=== PATIENT | male | born 1945 | race Caucasian/White ===

== ENCOUNTER 2016-07-03 13:34 | Emergency (ER) | payer MEDICARE, OTHER ==
[~2016-07-03] VITALS: Ht 170.1 cm; Wt 72.6 kg
[~2016-07-03 13:34] MED LIST: ALBUTEROL SULFAT3 M1 NEB; ASACOL PO; ASMANEX220 MCG INH; BIAXIN500 MG PO; CEFTIN250 MG PO; CETIRIZINE10 MG PO; CLARITIN10 MG PO; FORADIL AERO0.012 MG IH; MEDROL DOSEPAK4 MG PO; MESALAMINE PO; MULTIVITAMIN1 TAB PO; PANTOPRAZOLE40 MG PO; PRILOSEC20 MG PO; PROBIOTIC FORMU1 CAP PO; PROVENTIL0.09 MG/AC IH; SINGULAIR10 MG PO; SPIRIVA18 MCG IH; SUPER B COMPLEX PO; SYMBICORT 10.10.2 M1 IH; SYMBICORT1 AE1 INH; VICODIN 5/500 505 MG PO; VICODIN ES 7501 TA1 PO; VICODIN ES 7501 TAB PO; Ventolin 02.5 MG/3 M INH; ZITHROMAX Z PA250 MG PO
[2016-07-03 13:39] VITALS: BP 141/73
[2016-07-03] MEDS ORDERED: ASPIR LOW81 MG PO (15:03)
[2016-07-03] MEDS ORDERED: PLAVIX75 M1 PO (15:03)
== END 2016-07-03 15:30 | disposition home or self-care (01) ==
LOC: ED 13:34
DX: I74.8 Embolism and thrombosis of other arteries (principal); K21.9 Gastro-esophageal reflux disease without esophagitis; J44.9 Chronic obstructive pulmonary disease, unspecified; F17.200 Nicotine dependence, unspecified, uncomplicated; R03.0 Elevated blood-pressure reading, without diagnosis of hypertension; Z88.1 Allergy status to other antibiotic agents; Z88.8 Allergy status to other drugs, medicaments and biological substances; Z79.899 Other long term (current) drug therapy

== ENCOUNTER 2016-09-12 08:54 | Emergency (ER) | payer MEDICARE, OTHER ==
[~2016-09-12] VITALS: Wt 74.4 kg
[~2016-09-12 08:54] MED LIST changes: +ASPIR LOW81 MG PO; +PLAVIX75 M1 PO
[2016-09-12 09:09] VITALS: BP 132/69
[2016-09-12] MEDS ORDERED: FLONASE ALLERG9.9 ML NAS (09:17)
[2016-09-12] MEDS ORDERED: VITAMIN D-32000 UNI1 PO (09:18)
[2016-09-12] MEDS ORDERED: VITAMIN C1000 M3 PO (09:19)
[2016-09-12] MEDS ORDERED: ULTRAM50 MG PO (09:19)
[2016-09-12] MEDS ORDERED: TAMSULOSIN HCL0.4 MG PO (09:20)
[2016-09-12] MEDS ORDERED: ASACOL HD800 M1 PO (09:20)
[2016-09-12] MEDS ORDERED: REQUIP0.5 MG PO (09:21)
[2016-09-12] MEDS ORDERED: PERCOCET 325 MG1 TA2 PO (11:52)
== END 2016-09-12 12:05 | disposition home or self-care (01) ==
LOC: ED 08:54
DX: S32.049A Unspecified fracture of fourth lumbar vertebra, initial encounter for closed fracture (principal); J44.9 Chronic obstructive pulmonary disease, unspecified; K21.9 Gastro-esophageal reflux disease without esophagitis; Z90.49 Acquired absence of other specified parts of digestive tract; Z88.1 Allergy status to other antibiotic agents; Z88.8 Allergy status to other drugs, medicaments and biological substances; X58.XXXA Exposure to other specified factors, initial encounter; Y93.89 Activity, other specified; Y92.9 Unspecified place or not applicable; Y99.9 Unspecified external cause status

== ENCOUNTER 2017-04-07 22:41 | Inpatient (IN) | payer MEDICARE, OTHER ==
[~2017-04-07] VITALS: Ht 170.2 cm; Wt 77.2 kg
--- NOTE | ~2017-04-07 | PR ---
[place], [place] PROGRESS NOTE NAME: FRANCIA MOHAMUD UNIT #: [id number] ROOM: 411 DOCTOR: ALEXANDRIA FAITH DO BIRTHDATE: [birth year] DOS: 04/16/2017 SUBJECTIVE: The patient was seen and evaluated today. He is in no acute distress. He denies any chest pain. He states he is having some soreness in the throat, but otherwise his respirations are improving. Denies any diarrhea, abdominal pain, headache, fevers or any other symptoms. OBJECTIVE: VITAL SIGNS: 97.7 for temperature, pulse 85, respiratory rate 20, blood pressure 132/82 and bedside pulse oximetry 95% on 2 liters. GENERAL: The patient appears to be in no acute distress. He is awake, alert and oriented to time, place and person. PULMONARY: Some scattered wheezes or diminished breath sounds. No apparent crackles or rhonchi. CARDIOVASCULAR: S1, S2 can be heard. No lower extremity edema. ABDOMEN: Shows no distension, no abdominal pain. EXTREMITIES: No erythema, no edema. NEUROLOGIC: No acute neuro deficits. CULTURES: There is heavy yeast, but otherwise cultures have been negative. LABORATORY DATA: WBC 10.2, HGB 14.2, HCT 43.9 and platelets 229. Chemistries: Sodium is 142, potassium 3.8, chloride 103, carbon dioxide 35, BUN 27, creatinine 0.91, glucose 124, calcium 7.9. IMPRESSION AND PLAN: Acute on chronic respiratory failure secondary to tracheobronchitis. The patient has improved significantly and is cleared to go home from pulmonary perspective at the discretion of the primary care team. He will be continued on breathing treatments and prednisone. He will follow up with Dr. Doan in 2-4 weeks. The patient also should continue to take an antifungal agent for his oral thrush. Otherwise, see Dr. Doan's note for further details. ALEXANDRIA FAITH DO [place], [place] PROGRESS NOTE NAME: FRANCIA MOHAMUD UNIT #: [id number] ROOM: 411 DOCTOR: ALEXANDRIA FAITH DO BIRTHDATE: [birth year] KHAI DOAN MD CM:ARTURO [id number] ALEXANDRIA FAITH DO 04/19/17 1051 interface
--- NOTE | ~2017-04-07 | CON ---
[place], [place] REPORT OF CONSULTATION NAME: FRANCIA MOHAMUD [facility] #: [id number] UNIT #: [id number] ROOM: 411 DOCTOR: KHAI CHE MD BIRTHDATE: [birth year] DOS: 04/13/2017 CONSULTATION REQUESTED BY: For the patient by the hospitalist services. REASON FOR CONSULTATION: Assessment of the ongoing acute exacerbation of chronic obstructive pulmonary disease for this patient and no resolution of symptoms since hospitalization of 04/07/2017. HISTORY OF PRESENT ILLNESS: This is a 71-year-old white male, who has been admitted under care of hospitalist services on 04/07/2017. The patient reported symptoms of having increased shortness of breath with coughing, chest congestion for about 2-3 days. He has been brought to the hospital by the EMS. The patient was noted with worsening of shortness of breath at that time. He denies any symptoms of chest pain. The cough has been noted with intermittent sputum expectoration including greenish sputum expectoration of small quantity. There was no hemoptysis. He does complain of tightness in the chest at that time, but there was no chest pain. The patient has been treated with intravenous corticosteroids, bronchodilators, antibiotics reported with partial reduction of the symptoms, still noted significant cough which is currently noted nonproductive, inability to expectorate sputum. Hard cough for this patient was noted resulting in pain in the area ____ bilaterally but there was no sputum expectoration described. REVIEW OF SYSTEMS: CONSTITUTIONAL: Fatigue and tiredness noted without symptoms of fever or chills. EYES: Denies any burning, redness, or tenderness. EAR, NOSE, THROAT SYMPTOMS: Denies sore throat, hoarseness, otalgia, postnasal drainage or epistaxis. CARDIOVASCULAR: Denies anginal pain, edema or pain of the lower extremities. GASTROINTESTINAL: Dysphagia, nausea, vomiting, diarrhea, abdominal pain, hematemesis, melena, or hematochezia. SKIN: Denies any lesions or rashes. MUSCULOSKELETAL: No any acute joint pain. Remaining systems were reviewed with the patient, they were noted all negative. PAST MEDICAL HISTORY: The patient was noted with history of: 1. Centrilobular emphysema, chronic obstructive pulmonary disease. 2. History of gastroesophageal reflux and irritable bowel syndrome. 3. The patient has history of allergic rhinitis. 4. History of chronic pain. 5. History of peripheral vascular disease. 6. History of restless legs syndrome. PAST SURGICAL HISTORY: Reported: 1. Hemorrhoidectomy. 2. Bilateral shoulder arthroplasty. 3. Cholecystectomy. 4. Pilonidal cyst removal. [place], [place] REPORT OF CONSULTATION [facility]: [id number] UNIT #: [id number] ROOM: 411 DOCTOR: BERENICE CHE MDM BIRTHDATE: [birth year] 5. Extraction of the teeth. 6. Tonsillectomy. 7. Femoral popliteal bypass grafting for peripheral disease management. 8. History of hemorrhoidectomy. SOCIAL HISTORY: The patient is , lives at home. The patient does smoke, was started as a teenager, about a 3 packs of cigarettes per day that was discontinued in 2009. 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 The patient with total exposure of 40 years to a lot of dust for this patient and possible asbestos as well. FAMILY HISTORY: The patient's father at age of 7171 years old, complications related to myocardial infarction. Mother at the age of 6161 years old related to the heart disease. HOME MEDICATIONS: Listed use of albuterol sulfate, vitamin C, aspirin, Symbicort, Zyrtec, vitamin D, Plavix, Flonase, mesalamine, multivitamin, Requip, Flomax, Spiriva, tramadol, vitamin B complex. DRUG ALLERGIES: Noted allergy: 1. SINGULAIR. 2. NEOMYCIN. 3. TYLENOL. PHYSICAL EXAMINATION: GENERAL: A 71-year-old male who has been currently noted to be awake and alert without any distress, sitting on the chair, started eating his breakfast. His height noted as 5 feet 7 inches, weight of 170 pounds, BMI 26.6. VITAL SIGNS: Normal temperature, respiratory rate 20-18, heart rate of 92-102, blood pressure 111/52-120/62. The pulse oxygen saturation of the patient recorded as 90% at 3 liters via nasal cannula. HEENT: Examination shows head was atraumatic. Eyes nonicterus. NECK: Supple. CARDIOVASCULAR: S1, S2 audible. LUNGS: Diffuse reduction in breath sounds noted in the lungs bilaterally with scattered expiratory wheezing. There were no crackles. ABDOMEN: Soft, nontender. EXTREMITIES: No edema, clubbing, cyanosis. CENTRAL NERVOUS SYSTEM: Cranial nerves 2-12 intact. No focal deficits. MUSCULOSKELETAL: No deformities. SKIN: No visible lesions or rashes. LABORATORY DATA: CBC of 04/11/2017 for the patient noted as normal CBC. The BMP of patient of 04/10/2017 showed glucose 164 for the patient noted, otherwise normal. The BMP of yesterday showed normal BUN and creatinine. The CBC was noted as normal. Review of the radiology data for this patient pertinent to the chest for this patient, the chest x-ray of the patient that has been done for patient on 04/09/2017 was noted without any acute abnormalities. COPD changes noted in [place], [place] REPORT OF CONSULTATION NAME: FRANCIA MOHAMUD UNIT #: [id number] ROOM: [facility] DOCTOR: KHAI CHE MD BIRTHDATE: [birth year] 04/07/2017 chest x-ray of the patient, previously was noted small area of atelectasis, left lower lobe. IMPRESSION: 1. The patient will be currently admitted to the hospital, treated for acute exacerbation of chronic obstructive pulmonary disease, acute tracheobronchitis with noted persistent cough without any improvement with current medical management. The cough is currently noted nonproductive. 2. Acute exacerbation of chronic obstructive pulmonary disease as well. 3. History of allergic rhinitis. 4. Irritable bowel syndrome. 5. Peripheral vascular disease and multiple other medical problems. PLAN OF MANAGEMENT: The patient has been currently getting the bronchodilators, Mucinex, high dose and the flutter valve. The Solu-Medrol has been also continued as 60 mg q.8 hours intravenously. She has her home medications that have been resumed and seemed not to be responding to the treatment. Plan continuation of the antibiotics, bronchodilators and oxygen supplementation and the flutter valve as well as the Mucinex. The patient will benefit from fiberoptic bronchoscopy, which would be therapeutic bronchoscopy to help clear secretions from the endobronchial tree. She was agreeable for the procedure as the risk and benefits were discussed with the patient in detail. N.p.o. past midnight status will be achieved from midnight tonight. Upon completion of the procedure, any modification treatment if necessary will be done accordingly. No other changes to be needed in the treatment today. Usual care. Supportive plan of management. KHAI DOAN MD CM:CONSTR:REPORT OF CONSULTATION 1106 04/13/17 1331 interface
--- NOTE | ~2017-04-07 | PR ---
[place], [place] PROGRESS NOTE [id number] UNIT #: [id number] ROOM: 411 DOCTOR: ALEXANDRIA FAITH DO BIRTHDATE: [birth year] DOS: 04/15/2017 This progress note is to be attached to Dr. Doan's progress note. SUBJECTIVE: The patient was evaluated. He is awake, alert, responsive. Denies any nausea, vomiting, chest pain or dizziness. He does state that his respiratory status is improved today as compared to yesterday since he had the bronch. Denies any fevers or chills. OBJECTIVE: VITAL SIGNS: Temperature 98, pulse 89, respiratory rate 20, blood pressure 137/55 and bedside pulse oximetry 97% on 3 liter nasal cannula. GENERAL: Awake, alert, oriented, pleasant, cooperative, in no acute distress. HEAD: Normocephalic, atraumatic. ENT: No changes. NECK: Without any masses or lesions. Trachea is midline. CARDIOVASCULAR: Regular rate and rhythm. No gallops or murmur. RESPIRATORY: The patient is coughing. LUNGS: Diminished breath sounds bilaterally with scattered wheezes. No rhonchi or rales. ABDOMEN: Soft, positive bowel sounds, nontender. EXTREMITIES: No clubbing, no cyanosis, no erythema. NEUROLOGIC: Grossly intact. Cranial nerves 2-12 are grossly intact. PSYCHOLOGICAL: Good historian and fair judgment. SKIN: Warm and dry. LABORATORY DATA: CBC shows a WBC count of 10.5, hemoglobin 14.3, hematocrit 43.2 and platelet count of 247. Chemistries: Sodium is 143, potassium 3.9, chloride 104, carbon dioxide 32, BUN 26, creatinine 0.94, GFR approximately more than 60, glucose 147, calcium 7.8. Cultures: Normal franco in the bronch with the heavy yeast. Final sputum culture showed normal franco with some whitey yeast. Bronch Gram stain showed few gram-positive cocci in clusters and few gram-negative bacilli. The bronch SHANIA prep showed no fungal elements. IMPRESSION AND PLAN: 1. Ongoing severe exacerbation of chronic obstructive pulmonary disease, does seem to be improving. 2. Chronic obstructive pulmonary disease with acute tracheobronchitis. PLAN OF CARE: We will continue with the Solu-Medrol decreasing the dose to 40 b.i.d. from the 60 t.i.d. and will continue with breathing treatments and other regular treatments. I think he has completed the antibiotic course of azithromycin and Rocephin and he continues to improve. We will reevaluate tomorrow. Please see Dr. Doan's note if you need any more details on impression and plan of care. [place], [place] PROGRESS NOTE NAME: FRANCIA MOHAMUD UNIT #: [id number] ROOM: 411 DOCTOR: ALEXANDRIA FAITH DO BIRTHDATE: [birth year] ALEXANDRIA FAITH DO KHAI DOAN MD CM:PNTRANS [id number] ALEXANDRIA FAITH DO 04/19/17 1052 interface
--- NOTE | ~2017-04-07 | EKG ---
[place], [place] ELECTROCARDIOGRAM REPORT NAME: FRANCIA MOHAMUD UNIT #: [id number] ROOM: 411 DOCTOR: OLIMPIA SALINAS MD,KHAI BIRTHDATE: [birth year] DOS: 04/13/2017 The patient however noted normal sinus rhythm with a rate of 96 beats per minute. There were no changes for ischemia or any abnormal arrhythmias. KHAI DOAN MD CM:EKGRPT:ELECTROCARDIOGRAM REPORT 1504 1512 KHAI SALINAS MD
--- NOTE | ~2017-04-07 | PR ---
[place], [place] PROGRESS NOTE NAME: FRANCIA MOHAMUD UNIT #: [id number] ROOM: 411 DOCTOR: KHAI CHE MD BIRTHDATE: [birth year] DOS: 04/15/2017 SUBJECTIVE: The patient was seen and examined independently with [id number] encounter on 04/15/2017. The history was confirmed. Physical findings were confirmed. All the labs were reviewed. Assessment and management of the patient was done for today's visit personally; note done by the medical billing coder was approved. The patient had bronchoscopy done yesterday with noted reduction in the cough. The resolution noted incomplete. Denies symptoms of chest pain or hemoptysis. Continue antibiotics, bronchodilators, corticosteroids. PHYSICAL EXAMINATION: VITAL SIGNS: Noted essentially stable and within normal limits. Pulse oxygen saturation 3 liters nasal cannula at 94% saturation recorded. LUNGS: Noted with general reduction in the breath sounds, scattered expiratory wheezing, no crackles. ABDOMEN: Soft, nontender. LABORATORY DATA: The patient's CBC was noted normal. BMP was noted with BUN 26, creatinine was normal, glucose 147. Culture of the bronchial washing preliminary showing heavy growth of yeast. Final results pending. Gram stain shows many white blood cell, few gram-positive cocci in clusters and gram-negative bacilli. IMPRESSION: The patient has been noted with severe acute tracheobronchitis for this patient with a large amount of mucus impaction of major airways status post bronchoscopy with partial improvement occurred for the patient post-bronchoscopy. Final culture results were ____ bacterial growth. Preliminary finding of culture results remains pending at this time. PLAN OF TREATMENT: The patient will be continued on current antibiotics. The dose of corticosteroids will be decreased to Solu-Medrol 40 mg b.i.d. in preparation for possible discharge home. The patient whether he will require oral or intravenous antibiotic would be determined tomorrow after the final culture results. In the meantime, continue the bronchodilator treatment and other supportive plan and management and care. [place], [place] PROGRESS NOTE NAME: FRANCIA MOHAMUD UNIT #: [id number] ROOM: 411 DOCTOR: KHAI CHE MD BIRTHDATE: [birth year] KHAI DOAN MD CM:PNTRANS [phone] KHAI SALINAS MD 04/15/17 1846 interface
--- NOTE | ~2017-04-07 | PROC NOTE ---
[place], [place] PROCEDURE NOTE NAME: FRANCIA MOHAMUD UNIT #: [id number] ROOM: 411 DOCTOR: OLIMPIA SALINAS MD,KHAI BIRTHDATE: [birth year] DOS: 04/14/2017 PROCEDURE: Bronchoscopy. PREOPERATIVE DIAGNOSES: Persistent nonresolving cough with ongoing acute exacerbation of chronic obstructive pulmonary disease. POSTOPERATIVE DIAGNOSIS: Severe purulent tracheobronchitis noted with multiple plugs of mucus, purulent secretions causing partial impaction of the airway, which was cleared after the help of normal saline wash without any difficulty. PROCEDURE DESCRIPTION: Informed consent was obtained. He was brought to the OR and placed in supine position. Conscious sedation administered by the Anesthesia Department. After achieving appropriate sedation, airway introduced into the mouth. Bronchoscope advanced into the airway into laryngeal area of epiglottis was seen. The vocal cords moving symmetrically with the movements. Bronchoscope advanced to the vocal cord into tracheal lumen noted with a copious amount of purulent secretions with mucoid secretions combination, purulent secretions suctioned out to the gisselle level. Gisselle was noted sharp. Right upper, right middle, right lower, left upper, lingular lower lobe bronchi were all examined. Copious amount of secretion present in endobronchial tree bilaterally with impaction of the mucus plug with the major airways. All secretions suctioned out, significant inflammatory changes noted in mucosa with submucosal edema, friable mucosa. Procedure well tolerated by the patient. All secretions, which were removed were sent for cultures. Postoperative findings were discussed with the patient's in detail. KHAI DOAN MD CM:PROCNOTE:PROCEDURE NOTE [id number] KHAI SALINAS MD
--- NOTE | ~2017-04-07 | PR ---
[place], [place] PROGRESS NOTE NAME: FRANCIA MOHAMUD UNIT #: [id number] ROOM: 411 DOCTOR: ALEXANDRIA FAITH DO BIRTHDATE: [birth year] DOS: 04/14/2017 ADDENDUM SUBJECTIVE: The patient has been coughing and continues to be congested. He denies any major improvement in his symptoms. He was taken for a bronchoscopy which was performed by Dr. Doan. OBJECTIVE: VITAL SIGNS: Pulse 99, respiratory rate 20, blood pressure 132/67. Bedside pulse oximetry is 95% on 3 liters nasal cannula. HEENT: No new changes, no lesions, no drainage from the eyes. CARDIOVASCULAR: S1, S2 audible, borderline tachycardia. LUNGS: Decreased breath sounds bilaterally with expiratory wheezes scattered throughout, rhonchi bilaterally as well. EXTREMITIES: No lower extremity edema or erythema. LABORATORY DATA: Sputum culture showed moderate epithelial cells, few gram-positive bacilli, few gram-positive cocci in pairs and few budding yeast. The sputum culture showing some light yeast. IMPRESSION: 1. Chronic obstructive pulmonary disease exacerbation. 2. Acute tracheobronchitis and persistent cough. 3. History of allergic rhinitis. 3. Irritable bowel syndrome. 4. Peripheral vascular disease. PLAN OF MANAGEMENT: The patient had a bronchoscopy done earlier today. There was a mucus plug, was removed. Tracheobronchitis was observed. We will continue with current treatment with steroids and current antibiotics, Rocephin and azithromycin. We will reevaluate tomorrow. Please attach this progress note to Dr. Doan's progress note and see impression and plan of management from his note for more details. ALEXANDRIA FAITH DO [place], [place] PROGRESS NOTE NAME: FRANCIA MOHAMUD UNIT #: [id number] ROOM: 411 DOCTOR: ALEXANDRIA FAITH DO BIRTHDATE: [birth year] KHAI DOAN MD CM:PNTRANS [phone] ALEXANDRIA FAITH DO 04/14/17 1848 interface
--- NOTE | ~2017-04-07 | PR ---
[place], [place] PROGRESS NOTE NAME: FRANCIA MOHAMUD [facility] #: [id number] UNIT #: [id number] ROOM: 411 DOCTOR: OLIMPIA SALINAS MD,KHAI BIRTHDATE: [birth year] DOS: 04/14/2017 SUBJECTIVE: The patient was seen and examined independently, [id number] encounter, history was reviewed, physical examination performed, all the available labs were reviewed. This patient necessary for this patient's management were personally made for today's visit as well. The note done by the medical records coder was approved. He has been currently noted n.p.o. past midnight and bronchoscopy. OBJECTIVE: VITAL SIGNS: Remains stable at this time. CHEST: The auscultation of the chest was noted with generalized reduction in breath sounds, scattered expiratory wheezing. ABDOMEN: Soft, nontender. LABORATORY DATA: Blood culture from the first of this month showed no bacterial growth, final results. IMPRESSION: 1. Ongoing severe exacerbation. 2. Chronic obstructive pulmonary disease with acute tracheobronchitis. 3. Persistent nonresolving cough here for bronchoscopy. PLAN OF TREATMENT: No change in the plan of management at this time. Any necessary adjustment needed in the medication to be done after bronchoscopy. KHAI DOAN MD CM:PNTRANS [phone] KHAI SALINAS MD 04/14/17 1133 interface
--- NOTE | ~2017-04-07 | PR ---
[place], [place] PROGRESS NOTE NAME: FRANCIA MOHAMUD [facility] #: [id number] UNIT #: [id number] ROOM: 411 DOCTOR: OLIMPIA SALINAS MD,KHAI BIRTHDATE: [birth year] DOS: 04/16/2017 SUBJECTIVE: The patient was independently seen and examined with [id number] encounter. History was confirmed and physical examination performed. The patient's current medical management and the assessment were personally made for today's visit as well. The note done by the auditor medical claims was approved. He has been showing continued reduction and improvement in respiratory symptoms, complaining of sore throat, coughing, wheezing, and shortness breath. All of the other symptoms have been resolving progressively. Culture of the bronchial washing shows heavy growth of yeast, no bacterial isolation. OBJECTIVE: LUNGS: Noted with questionable wheezing, no crackles. ABDOMEN: Soft, nontender. PLAN OF TREATMENT: At this time, the patient has been noted significant improvement in progressive resolution of the acute respiratory symptoms could be considered for home discharge from the pulmonary standpoint on tapering prednisone and the antibiotics. Outpatient followup to be made by the patient as well in about 2-4 weeks. KHAI DOAN MD CM:ARTURO [id number] KHAI SALINAS MD 04/16/17 1142 interface
[2017-04-07 22:41] VITALS: BP 117/65
[~2017-04-07 22:41] MED LIST changes: +ASACOL HD800 M1 PO; +FLONASE ALLERG9.9 ML NAS; +PERCOCET 325 MG1 TA2 PO; +REQUIP0.5 MG PO; +TAMSULOSIN HCL0.4 MG PO; +ULTRAM50 MG PO; +VITAMIN C1000 M3 PO; +VITAMIN D-32000 UNI1 PO
[2017-04-07 22:50] VITALS: BP 105/58
[2017-04-07 23:05] LABS: HEMATOCRIT 47.8 % (42.0-52.0); HEMOGLOBIN 16.2 g/dl (14.0-18.0); MEAN CELL VOLUME 89.3 fl (80.0-94.0); MEAN CORPUSCULAR HGB 30.3 pg (27.0-31.0); MEAN CORPUSCULAR HGB CONC 33.9 g/dl (33.0-37.0); MEAN PLATELET VOLUME 9.9 fl (9.6-12.3); PLATELET COUNT AUTOMATED 210 10*3/uL (130-400); RED BLOOD COUNT 5.35 10*6/uL (4.50-5.90); RED CELL DISTRI WIDTH 13.6 % (0-14.5); WHITE BLOOD COUNT 16.9 10*3/uL (4.8-10.8)
[2017-04-07 23:08] VITALS: BP 114/52
[2017-04-07 23:17] LABS: ACT PARTIAL THROMBO TIME 22.3 SECONDS (20.8-31.5)
[2017-04-07 23:24] LABS: ALBUMIN 3.7 gm/dl (3.1-4.5); ALKALINE PHOSPHATASE 69 U/L (45-117); BUN 18 mg/dl (7-24); CHLORIDE 105 mmol/L (98-107); POTASSIUM 3.8 mmol/L (3.5-5.1); SGOT/AST 23 IU/L (3-35); SGPT/ALT 22 U/L (12-78); SODIUM 139 mmol/L (136-145); TOTAL PROTEIN 7.2 gm/dL (6.4-8.2); TROPONIN I < 0.015 ng/ml (<0.045)
[2017-04-07 23:26] LABS: PLATELET SUFFICIENCY NORMAL (NORMAL); TOTAL CELLS COUNTED 100 #CELLS
[2017-04-07 23:29] VITALS: BP 114/56
[2017-04-07 23:46] LABS: ABG BASE EXCESS -0.2 mmol/L (-2.0-2.0); ABG HCO3 23.8 mmol/l (22-26); ABG O2 SATURATION 97.6 % (95-97); ARTERIAL BLOOD GAS PCO2 40.6 mmHg (35-45); ARTERIAL BLOOD GAS PH 7.391 (7.35-7.45)
[2017-04-08] VITALS (9 sets, daily range): BP systolic 104–134; BP diastolic 46–78
--- NOTE | 2017-04-08 | NUR ---
PT SWITCHED FROM 15L NONREBREATHER TO 4L ON NC. POX 94%.
--- NOTE | 2017-04-08 00:10 | NUR ---
PT STATES THAT IT IS EASIER TO BREATH BUT HIS CHEST STILL FEELS "TIGHT".
--- NOTE | 2017-04-08 01:30 | NUR ---
A 71, admitted to , under the services of LINDA Brown DO with a diagnosis of COPD. Chief complaint is SHORTNESS OF BREATH. Patient arrived via stretcher from ER. Monitor applied. Initial assessment completed. Vital signs taken and recorded. LINDA BROWN DO notified of admission to the unit. Orders received. See assessment for past medical history, medications and allergies. Patient and/or family oriented to unit. [facility] visitation policy reviewed. Clothing/patient valuable form completed. SANDY MONZON
--- NOTE | 2017-04-08 01:37 | NUR ---
MED LIST REVIEWED WITH PATIENT. PT STATED ALL MEDS LISTED WERE CURRENTLY BEING TAKEN. PT. DID NOT HAVE A LIST. SANDY MONZON RN
[2017-04-08 05:01] LABS: HEMATOCRIT 43.4 % (42.0-52.0); HEMOGLOBIN 14.8 g/dl (14.0-18.0); MEAN CELL VOLUME 91.2 fl (80.0-94.0); MEAN CORPUSCULAR HGB 31.1 pg (27.0-31.0); MEAN CORPUSCULAR HGB CONC 34.1 g/dl (33.0-37.0); PLATELET COUNT AUTOMATED 192 10*3/uL (130-400); RED BLOOD COUNT 4.76 10*6/uL (4.50-5.90); RED CELL DISTRI WIDTH 13.4 % (0-14.5); WHITE BLOOD COUNT 15.5 10*3/uL (4.8-10.8)
[2017-04-08 05:20] LABS: PLATELET SUFFICIENCY NORMAL (NORMAL); TOTAL CELLS COUNTED 100 #CELLS
[2017-04-08 05:28] LABS: BUN 16 mg/dl (7-24); CHLORIDE 108 mmol/L (98-107); CHOLESTEROL 120 mg/dL (<200); CREATININE 1.31 mg/dL (0.70-1.30); HDL CHOLESTEROL 56 mg/dl (40-60); LDL CHOLESTEROL 57 mg/dL (9-159); PHOSPHOROUS 1.2 mg/dL (2.5-4.9); POTASSIUM 3.8 mmol/L (3.5-5.1); SODIUM 141 mmol/L (136-145); TRIGLYCERIDES 33 mg/dl (<150); VLDL CHOLESTEROL 7 mg/dL (6-40)
[2017-04-08 05:34] LABS: THYROID STIM HORMONE (HS) 0.257 uIU/ml (0.358-4.75)
--- NOTE | 2017-04-08 08:30 | NUR ---
Telecommunications Professional in to talk to patient. Patient states lives at HOME with HIS GIRLFRIEND. There are 16 steps in the home. Physician: DR JASSO/[place]: [place] Home health services: NONE Patient's level of ADLs: INDEPENDENT Patient has working utilities: YES DME: [facility]ALKER/NEB/O2 ENERGEN Follow-up physician's appointment after d/c: WILL BE MADE PRIOR TO DC Does patient want to access PORTAL?: Discharge plan HOME. RISHI CONKLIN PT HAS [facility] MEDIC[facility]. WANTS TO STAY HERE UNDER MEDICARE. AWARE HE MAY HAVE COPAY. STATES HE HAS SECONDARY INS TO COVER IT. REFUSAL TO [facility]NFER TO [facility] FORM SIGNED AND FAXED TO [facility] IN [facility]ILLING AND [facility]
--- NOTE | 2017-04-08 08:37 | NUR ---
DR PEREZ IN TO SEE PATIENT.
--- NOTE | 2017-04-08 11:02 | NUR ---
PT REQUESTED MEDICTION FOR A "QUEEZY" STOMACH. ZOFRAN GIVEN.
--- NOTE | 2017-04-08 12:01 | NUR ---
PT REPORTS NO MORE NAUSEA. ZOFRAN WAS EFFECTIVE.
[2017-04-08] MEDS ORDERED: CETIRIZINE10 MG PO (13:46)
[2017-04-09] VITALS: BP 117/56
[2017-04-09 05:32] LABS: BUN 19 mg/dl (7-24); CHLORIDE 112 mmol/L (98-107); CREATININE 1.19 mg/dL (0.70-1.30); POTASSIUM 4.4 mmol/L (3.5-5.1); SODIUM 143 mmol/L (136-145)
[2017-04-09 05:35] LABS: PHOSPHOROUS 3.1 mg/dL (2.5-4.9)
[2017-04-09 06:19] LABS: HEMATOCRIT 39.9 % (42.0-52.0); HEMOGLOBIN 13.3 g/dl (14.0-18.0); MEAN CELL VOLUME 92.4 fl (80.0-94.0); MEAN CORPUSCULAR HGB 30.8 pg (27.0-31.0); MEAN CORPUSCULAR HGB CONC 33.3 g/dl (33.0-37.0); MEAN PLATELET VOLUME 10.3 fl (9.6-12.3); PLATELET COUNT AUTOMATED 189 10*3/uL (130-400); RED BLOOD COUNT 4.32 10*6/uL (4.50-5.90); RED CELL DISTRI WIDTH 13.9 % (0-14.5); WHITE BLOOD COUNT 15.5 10*3/uL (4.8-10.8)
[2017-04-09 06:51] LABS: PLATELET SUFFICIENCY NORMAL (NORMAL); TOTAL CELLS COUNTED 100 #CELLS
[2017-04-09 08:00] VITALS: BP 102/46
[2017-04-09 12:00] VITALS: BP 112/56
[2017-04-09 16:00] VITALS: BP 102/84
[2017-04-09 20:00] VITALS: BP 111/61
[2017-04-10] VITALS: BP 141/69
[2017-04-10 05:55] LABS: HEMATOCRIT 40.1 % (42.0-52.0); HEMOGLOBIN 13.5 g/dl (14.0-18.0); MEAN CELL VOLUME 91.6 fl (80.0-94.0); MEAN CORPUSCULAR HGB 30.8 pg (27.0-31.0); MEAN CORPUSCULAR HGB CONC 33.7 g/dl (33.0-37.0); MEAN PLATELET VOLUME 10.6 fl (9.6-12.3); PLATELET COUNT AUTOMATED 200 10*3/uL (130-400); RED BLOOD COUNT 4.38 10*6/uL (4.50-5.90); RED CELL DISTRI WIDTH 14.2 % (0-14.5); WHITE BLOOD COUNT 12.8 10*3/uL (4.8-10.8)
[2017-04-10 06:07] LABS: BUN 21 mg/dl (7-24); CHLORIDE 110 mmol/L (98-107); CREATININE 1.02 mg/dL (0.70-1.30); POTASSIUM 4.2 mmol/L (3.5-5.1); SODIUM 144 mmol/L (136-145)
[2017-04-10 06:33] LABS: PLATELET SUFFICIENCY NORMAL (NORMAL); TOTAL CELLS COUNTED 100 #CELLS
[2017-04-10 08:00] VITALS: BP 132/72
--- NOTE | 2017-04-10 08:00 | NUR ---
IN BED AWAKE ALERT AND ORIENTED X3, NO S/S OF DISTRESS. SEE ASSESS. CALL LIGHT IN REACH. WILL CONT TO MONITOR.
[2017-04-10 12:00] VITALS: BP 136/59
[2017-04-10 16:00] VITALS: BP 149/64
[2017-04-10 20:00] VITALS: BP 120/51
--- NOTE | 2017-04-10 20:28 | NUR ---
PT. AWAKE, ALERT, AND ORIENTED X 3 AT THIS TIME. PT. UP IN THE CHAIR AT THIS TIME WITH NC ON @3LPM, PT. DENIES SOB AT REST, LUNGS SOUNDS DIMINISHED T/O. S1S2, HRR, PPP, NO EDEMA NOTED. BOWEL SOUNDS NORMO X4 QUADS, DENIES N/V/D. SKIN W/D/I. PT. AMBULATORY. CALL LIGHT WITHIN REACH, BED IN LOWEST POSITION, WHEELS LOCKED.
[2017-04-11] VITALS: BP 122/50
--- NOTE | 2017-04-11 01:41 | NUR ---
24 HR CHART CHECK COMPLETE.
[2017-04-11 06:00] LABS: BASO % 0.1 % (0.0-1.0); HEMATOCRIT 42.1 % (42.0-52.0); HEMOGLOBIN 13.8 g/dl (14.0-18.0); LYMPH # 0.6 10*3/uL (1.3-4.4); LYMPH % 5.7 % (27.0-41.0); MEAN CELL VOLUME 91.1 fl (80.0-94.0); MEAN CORPUSCULAR HGB 29.9 pg (27.0-31.0); MEAN CORPUSCULAR HGB CONC 32.8 g/dl (33.0-37.0); MEAN PLATELET VOLUME 10.5 fl (9.6-12.3); MONO # 0.4 10*3/uL (0.1-1.0); MONO % 3.7 % (3.0-9.0); NEUT # 8.6 10*3/uL (2.3-7.9); NEUT % 89.4 % (47.0-73.0); PLATELET COUNT AUTOMATED 224 10*3/uL (130-400); RED BLOOD COUNT 4.62 10*6/uL (4.50-5.90); WHITE BLOOD COUNT 9.6 10*3/uL (4.8-10.8)
--- NOTE | 2017-04-11 07:53 | NUR ---
IV TO PO CONVERSION: AZITHROMYCIN It may be appropriate to consider switching this patient's IV Azithromycin to the PO formulation. He is currently ordered other medications and a diet by mouth; has been afebrile; and his WBC are decreasing and WNL. If deemed clinically appropriate, consider a dose of 250-500 mg PO daily. Thank you.
[2017-04-11 08:00] VITALS: BP 129/59
[2017-04-11 12:00] VITALS: BP 129/63
[2017-04-11 16:00] VITALS: BP 142/68
--- NOTE | 2017-04-11 19:45 | NUR ---
Alert and oriented x3, sitting up in chair. Lungs diminished with PB rales noted. Using flutter valve and coughing up scant amount of green sputum per pt. See assessment.
[2017-04-11 20:00] VITALS: BP 138/61
--- NOTE | 2017-04-11 23:15 | NUR ---
ASSUMED CARE FOR THIS PT AT THIS TIME. NO C/O VOICED. RESTING QUIETLY IN BED AT THIS TIME. CALL LIGHT IN REACH.
[2017-04-12] VITALS: BP 141/74
--- NOTE | 2017-04-12 01:36 | NUR ---
24 HR chart check completed.
[2017-04-12 04:00] VITALS: BP 138/82
[2017-04-12 06:16] LABS: BASO % 0.1 % (0.0-1.0); HEMATOCRIT 42.8 % (42.0-52.0); HEMOGLOBIN 14.4 g/dl (14.0-18.0); LYMPH # 0.6 10*3/uL (1.3-4.4); MEAN CELL VOLUME 90.5 fl (80.0-94.0); MEAN CORPUSCULAR HGB 30.4 pg (27.0-31.0); MEAN CORPUSCULAR HGB CONC 33.6 g/dl (33.0-37.0); MEAN PLATELET VOLUME 10.4 fl (9.6-12.3); MONO # 0.2 10*3/uL (0.1-1.0); MONO % 2.9 % (3.0-9.0); PLATELET COUNT AUTOMATED 223 10*3/uL (130-400); RED BLOOD COUNT 4.73 10*6/uL (4.50-5.90); RED CELL DISTRI WIDTH 13.8 % (0-14.5); WHITE BLOOD COUNT 6.9 10*3/uL (4.8-10.8)
[2017-04-12 06:31] LABS: BUN 21 mg/dl (7-24); CHLORIDE 105 mmol/L (98-107); CREATININE 0.84 mg/dL (0.70-1.30); POTASSIUM 4.1 mmol/L (3.5-5.1); SODIUM 141 mmol/L (136-145)
--- NOTE | 2017-04-12 06:35 | NUR ---
PT RESTING QUIETLY IN BED AT THIS TIME. AWOKE EASILY FOR MEDS. NO C/O VOICED.
[2017-04-12 08:00] VITALS: BP 124/56
--- NOTE | 2017-04-12 09:50 | NUR ---
NOTIFIED OF CONSULT
[2017-04-12 12:00] VITALS: BP 125/64
--- NOTE | 2017-04-12 14:43 | NUR ---
PT AWAKE ALERT AND ORIENTED X3, NO COMPLAINTS DENIES PAIN, N/V/D PT SOB WITH MINIMAL EXERTION AND IS DEPENDENT ON SUPPLEMENTAL OXYGEN. PT IS UP IN CHAIR PLAYING CARDS WITH AT THIS TIME.
[2017-04-12 16:00] VITALS: BP 132/56
[2017-04-12 20:00] VITALS: BP 127/57
[2017-04-13] VITALS: BP 128/62
--- NOTE | 2017-04-13 06:13 | NUR ---
NEW IV STARTED IN PT. SARIKA D/T OLD IV NONPATENT. PT. TOLERATED PROCEDURE WELL.
[2017-04-13 08:00] VITALS: BP 111/52
[2017-04-13 12:00] VITALS: BP 126/54
[2017-04-13 16:00] VITALS: BP 144/64
[2017-04-13 20:00] VITALS: BP 136/79
--- NOTE | 2017-04-13 20:10 | NUR ---
PT. CURRENTLY RESING IN CHAIR WATCHING TV, WITH NC CONNECTED AND DELIVERING 2LPM. CALL LIGHT IS IN REACH AND PT. DOES NOT EXPRESS ANY CONCERNS OR HAS ANY SIGNS OF DISTRESS. SEE SHIFT ASSESSMENT.
[2017-04-14] VITALS (10 sets, daily range): BP systolic 115–140; BP diastolic 53–77
--- NOTE | 2017-04-14 00:51 | NUR ---
24 HR chart check completed.
--- NOTE | 2017-04-14 07:37 | NUR ---
tO or FOR bRONC.
--- NOTE | 2017-04-14 09:45 | NUR ---
Report recieved from OR.
--- NOTE | 2017-04-14 10:20 | NUR ---
0948 rETURNED FROM LAViki Domingo Denise IN TO [facility].
[2017-04-15] VITALS: BP 140/66
[2017-04-15 06:08] LABS: HEMATOCRIT 43.2 % (42.0-52.0); HEMOGLOBIN 14.3 g/dl (14.0-18.0); MEAN CELL VOLUME 91.7 fl (80.0-94.0); MEAN CORPUSCULAR HGB 30.4 pg (27.0-31.0); MEAN CORPUSCULAR HGB CONC 33.1 g/dl (33.0-37.0); MEAN PLATELET VOLUME 10.2 fl (9.6-12.3); PLATELET COUNT AUTOMATED 247 10*3/uL (130-400); RED BLOOD COUNT 4.71 10*6/uL (4.50-5.90); RED CELL DISTRI WIDTH 13.9 % (0-14.5); WHITE BLOOD COUNT 10.5 10*3/uL (4.8-10.8)
[2017-04-15 06:11] LABS: BUN 26 mg/dl (7-24); CHLORIDE 104 mmol/L (98-107); CREATININE 0.94 mg/dL (0.70-1.30); POTASSIUM 3.9 mmol/L (3.5-5.1); SODIUM 143 mmol/L (136-145)
[2017-04-15 06:47] LABS: PLATELET SUFFICIENCY NORMAL (NORMAL); TOTAL CELLS COUNTED 100 #CELLS
[2017-04-15 08:00] VITALS: BP 142/67
[2017-04-15 12:00] VITALS: BP 137/55
[2017-04-15 16:00] VITALS: BP 129/64
[2017-04-15 16:09] LABS: ACID FAST SMEAR Negative (.); ACID FAST SPEC PROCESSING Concentration (.)
[2017-04-15 20:00] VITALS: BP 125/59
[2017-04-16] VITALS: BP 133/63
--- NOTE | 2017-04-16 02:12 | NUR ---
patient complained of being woken by 8/10 throat pain. On assessment he was found to have inflamation and white patches in his mouth. Dr. Hart was notified and stated he would be up to assess the patient.
[2017-04-16 05:56] LABS: BASO % 0.1 % (0.0-1.0); HEMATOCRIT 43.9 % (42.0-52.0); HEMOGLOBIN 14.2 g/dl (14.0-18.0); LYMPH # 0.8 10*3/uL (1.3-4.4); MEAN CELL VOLUME 91.8 fl (80.0-94.0); MEAN CORPUSCULAR HGB 29.7 pg (27.0-31.0); MEAN CORPUSCULAR HGB CONC 32.3 g/dl (33.0-37.0); MEAN PLATELET VOLUME 10.2 fl (9.6-12.3); MONO # 0.6 10*3/uL (0.1-1.0); NEUT # 8.6 10*3/uL (2.3-7.9); NEUT % 84.2 % (47.0-73.0); PLATELET COUNT AUTOMATED 229 10*3/uL (130-400); RED BLOOD COUNT 4.78 10*6/uL (4.50-5.90); WHITE BLOOD COUNT 10.2 10*3/uL (4.8-10.8)
[2017-04-16 06:05] LABS: BUN 27 mg/dl (7-24); CHLORIDE 103 mmol/L (98-107); CREATININE 0.91 mg/dL (0.70-1.30); POTASSIUM 3.8 mmol/L (3.5-5.1); SODIUM 142 mmol/L (136-145)
[2017-04-16 08:00] VITALS: BP 132/82
--- NOTE | 2017-04-16 08:09 | NUR ---
Awake and alert. Up in room. states throat remains sore. scale 6/10. lozenges offered.
[2017-04-16] MEDS ORDERED: MUCINEX ER600 MG PO (09:53)
[2017-04-16] MEDS ORDERED: FLUCONAZOLE100 MG PO (09:53)
[2017-04-16] MEDS ORDERED: PREDNISONE10 MG PO (09:53)
[2017-04-16] MEDS ORDERED: LEVAQUIN750 M1 PO (09:53)
--- NOTE | 2017-04-16 10:24 | NUR ---
[facility] Discussed [facility] plan w/ pt. Hospitalist group aware. O2 decreased to 2L , remained adequatley oxygenated at 95%. Order for discharge recieved.
--- NOTE | 2017-04-16 12:45 | NUR ---
dISCHARGED TO HOME , Instruction given , voiced understanding.
== END 2017-04-16 12:45 | disposition home or self-care (01) | DRG 871 ==
LOC: ED 22:41 → 4E 23:59 → EDHOLD 23:59 → 4E 04-08 00:08
PROVIDERS: Emergency Medicine; Internal Medicine; Internal Medicine Critical Care Medicine; Student in an Organized Health Care Education/Training Program; ADMIT Internal Medicine
DX: A41.9 Sepsis, unspecified organism (principal); J96.21 Acute and chronic respiratory failure with hypoxia; N17.0 Acute kidney failure with tubular necrosis; J18.9 Pneumonia, unspecified organism; T17.590A Other foreign object in bronchus causing asphyxiation, initial encounter; J44.0 Chronic obstructive pulmonary disease with (acute) lower respiratory infection; J44.1 Chronic obstructive pulmonary disease with (acute) exacerbation; I77.1 Stricture of artery; Z99.81 Dependence on supplemental oxygen; D64.9 Anemia, unspecified; R65.20 Severe sepsis without septic shock; K21.9 Gastro-esophageal reflux disease without esophagitis; N40.0 Benign prostatic hyperplasia without lower urinary tract symptoms; J30.9 Allergic rhinitis, unspecified; G89.29 Other chronic pain; E80.6 Other disorders of bilirubin metabolism; I73.9 Peripheral vascular disease, unspecified; G25.81 Restless legs syndrome; R73.9 Hyperglycemia, unspecified; K52.9 Noninfective gastroenteritis and colitis, unspecified; X58.XXXA Exposure to other specified factors, initial encounter; J20.9 Acute bronchitis, unspecified; Z79.82 Long term (current) use of aspirin; Y99.8 Other external cause status; Z88.1 Allergy status to other antibiotic agents; Z79.01 Long term (current) use of anticoagulants; Z91.048 Other nonmedicinal substance allergy status; Z88.8 Allergy status to other drugs, medicaments and biological substances; Z90.49 Acquired absence of other specified parts of digestive tract; Z82.49 Family history of ischemic heart disease and other diseases of the circulatory system; Z80.3 Family history of malignant neoplasm of breast; Z79.51 Long term (current) use of inhaled steroids; Y93.89 Activity, other specified; Y92.89 Other specified places as the place of occurrence of the external cause

== ENCOUNTER → 2019-01-11 | Day surgery (SDC) | payer MEDICARE, OTHER ==
[~2019-01-11] VITALS: Ht 175.2 cm; Wt 72.6 kg
[~2019-01-11] MED LIST changes: -ALBUTEROL SULFAT3 M1 NEB; +ALBUTEROL0.63 MG/3 INH; +CILOSTAZOL100 MG PO; +DOXYCYCLINE100 M3 PO; +FLUCONAZOLE100 MG PO; +LEVAQUIN750 M1 PO; +MUCINEX ER600 MG PO; +OXYGEN NAS; +PREDNISONE10 MG PO
--- NOTE | ~2019-01-11 | O ---
[place], [place] OPERATIVE NOTE [id number] UN[facility] #: [id number] ROOM: DOCTOR: ADIN MERCADO MD BIRTHDATE: [birth year] DOS: 01/11/2019 PREOPERATIVE DIAGNOSIS: Cataract, right eye. POSTOPERATIVE DIAGNOSIS: Cataract, right eye. OPERATION: Extracapsular cataract extraction by phacoemulsification with posterior chamber intraocular lens implantation, right eye. ANESTHESIA: Monitored standby. INTRAOCULAR LENS: Taz, Model #AU00T0, 22.0 diopters, right eye. OPERATIVE FINDINGS AND PROCEDURE: 2% Xylocaine topical anesthetic gel was applied to the eye in the preop area. The patient was taken to the operating room and prepped and draped in the standard fashion for sterile intraocular surgery. A time out procedure was performed verifying correct patient, correct site and corrects lens with Jb Mercado M.D. The operating microscope was swung into position and the lid speculum was inserted. Using a Raya paracentesis blade, a paracentesis was made through clear cornea. A preservative-free, a mixture of lidocaine 4% and preservative-free epinephrine 1:1000 in balanced salt solution was injected into the anterior chamber. Viscoelastic was used to fill the anterior chamber. Using a metal keratome a 2.4 mm self-sealing clear corneal cataract incision was made temporally at the limbus. Using a pre-bent 25 gauge cystotome needle, a standard continuous curvilinear capsulorrhexis was performed. The anterior capsule was removed with forceps. The lens nucleus was hydrodissected and phacoemulsified in the posterior chamber. Cortical material was removed with the irrigation aspiration hand piece and the posterior capsule was then polished with a curet under irrigation. The posterior chamber and capsular bag were filled with viscoelastic. A posterior chamber intraocular lens manufactured by: Taz, Model #AU00T0, and 22.0 diopters in strength were then inserted into the posterior chamber and within the capsular bag using the lens cartridge and injector system. Viscoelastic was removed using the irrigation aspiration handpiece. The anterior chamber was filled with balanced salt solution through the paracentesis. Both the paracentesis site and cataract incisions were hydrated with BSS and verified to be water-tight and self-sealing. Cefuroxime 1 mg/0.1 mL was injected into the anterior chamber through the paracentesis site. The incision checked to be water-tight using a Weck-Vanesa sponge. The integrity of the cataract wound and ocular tension were checked. Lid speculum and drapes were removed. The patient was transferred from the operating room to the recovery room in satisfactory condition. [place], [place] OPERATIVE NOTE NAME: FRANCIA MOHAMUD UNIT #: [id number] ROOM: DOCTOR: ADIN MERCADO MD BIRTHDATE: [birth year] ADIN MERCADO MD CM:OPRECORD:OPERATIVE NOTE 1214 1230 ADIN MERCADO MD 01/11/19 1229 interface
[2019-01-11 10:40] VITALS: BP 109/56
[2019-01-11 12:02] VITALS: BP 125/61
[2019-01-11 12:17] VITALS: BP 131/65
[2019-01-11 12:32] VITALS: BP 116/63
== END | disposition home or self-care (01) ==
LOC: SDC 01-06 11:00
DX: H25.811 Combined forms of age-related cataract, right eye (principal); J44.9 Chronic obstructive pulmonary disease, unspecified; K21.9 Gastro-esophageal reflux disease without esophagitis; Z98.890 Other specified postprocedural states; Z79.899 Other long term (current) drug therapy; Z88.8 Allergy status to other drugs, medicaments and biological substances; Z80.9 Family history of malignant neoplasm, unspecified

== ENCOUNTER → 2019-02-08 | Day surgery (SDC) | payer MEDICARE, OTHER ==
[~2019-02-08] VITALS: Ht 175.2 cm; Wt 72.6 kg
[~2019-02-08] MED LIST changes: +DALI500T PO
--- NOTE | ~2019-02-08 | O ---
[place], [place] OPERATIVE NOTE NAME[facility]UD [id number] UNIT #: [id number] ROOM: DOCTOR: ADIN MERCADO MD BIRTHDATE: [birth year] DOS: 02/08/2019 PREOPERATIVE DIAGNOSIS: Cataract, left eye. POSTOPERATIVE DIAGNOSIS: Cataract, left eye. OPERATION: Extracapsular cataract extraction by phacoemulsification with posterior chamber intraocular lens implantation, left eye. ANESTHESIA: Monitored standby. OPERATIVE FINDINGS AND PROCEDURE: 2% Xylocaine topical anesthetic gel was applied to the eye in the preop area. The patient was taken to the operating room and prepped and draped in the standard fashion for sterile intraocular surgery. A time out procedure was performed verifying correct patient, correct site and corrects lens with Jb Mercado M.D. The operating microscope was swung into position and the lid speculum was inserted. Using a Raya paracentesis blade, a paracentesis was made through clear cornea. Viscoelastic was used to fill the anterior chamber. Using a metal keratome a 2.4 mm self-sealing clear corneal cataract incision was made temporally at the limbus. Using a pre-bent 25 gauge cystotome needle, a standard continuous curvilinear capsulorrhexis was performed. The anterior capsule was removed with forceps. The lens nucleus was hydrodissected and phacoemulsified in the posterior chamber. Cortical material was removed with the irrigation aspiration hand piece and the posterior capsule was then polished with a curet under irrigation. The posterior chamber and capsular bag were filled with viscoelastic. A posterior chamber intraocular lens manufactured by: Taz, AU00T0, 22.0 diopters in strength were then inserted into the posterior chamber and within the capsular bag using the lens cartridge and injector system. Viscoelastic was removed using the irrigation aspiration handpiece. The anterior chamber was filled with balanced salt solution through the paracentesis. Both the paracentesis site and cataract incisions were hydrated with BSS and verified to be water-tight and self-sealing. Cefuroxime 1 mg/0.1 mL was injected into the anterior chamber through the paracentesis site. The incision checked to be water-tight using a Weck-Vanesa sponge. The integrity of the cataract wound and ocular tension were checked. Lid speculum and drapes were removed. The patient was transferred from the operating room to the recovery room in satisfactory condition. [place], [place] OPERATIVE NOTE NAME: FRANCIA MOHAMUD UNIT #: [id number] ROOM: DOCTOR: ADIN MERCADO MD BIRTHDATE: [birth year] ADIN MERCADO MD CM:OPRECORD:OPERATIVE NOTE 1234 1318 ADIN MERCADO MD 02/08/19 1318 interface
[2019-02-08 11:13] VITALS: BP 115/45
[2019-02-08 12:03] VITALS: BP 130/63
[2019-02-08 12:18] VITALS: BP 133/68
[2019-02-08 12:32] VITALS: BP 134/61
== END | disposition home or self-care (01) ==
LOC: SDC 02-02 14:00
DX: H25.812 Combined forms of age-related cataract, left eye (principal); K21.9 Gastro-esophageal reflux disease without esophagitis; J44.9 Chronic obstructive pulmonary disease, unspecified; Z90.49 Acquired absence of other specified parts of digestive tract; Z98.890 Other specified postprocedural states; Z79.899 Other long term (current) drug therapy; Z88.8 Allergy status to other drugs, medicaments and biological substances; Z80.9 Family history of malignant neoplasm, unspecified

== ENCOUNTER 2019-03-21 09:57 | Inpatient (IN) | payer MEDICARE, OTHER ==
[~2019-03-21] VITALS: Ht 170.1 cm; Wt 73.5 kg
[2019-03-21 09:58] VITALS: BP 133/61
[2019-03-21 10:37] LABS: BASO % 0.4 % (0.0-1.0); EOS % 0.5 % (1.0-4.0); HEMATOCRIT 45.4 % (42.0-52.0); LYMPH # 2.1 10*3/uL (1.3-4.4); LYMPH % 25.7 % (27.0-41.0); MEAN CORPUSCULAR HGB 31.1 pg (27.0-31.0); MEAN PLATELET VOLUME 9.9 fl (9.6-12.3); MONO # 0.6 10*3/uL (0.1-1.0); MONO % 7.6 % (3.0-9.0); NEUT # 5.3 10*3/uL (2.3-7.9); NEUT % 65.3 % (47.0-73.0); PLATELET COUNT AUTOMATED 247 10*3/uL (130-400); RED BLOOD COUNT 4.83 10*6/uL (4.50-5.90); RED CELL DISTRI WIDTH 12.8 % (0-14.5); WHITE BLOOD COUNT 8.1 10*3/uL (4.8-10.8)
[2019-03-21 10:50] LABS: ACT PARTIAL THROMBO TIME 24.9 SECONDS (20.0-32.1); INTERNATIONAL NORM RATIO 1.1 (2.0-3.5)
[2019-03-21 10:51] LABS: ALBUMIN 3.1 gm/dl (3.1-4.5); ALKALINE PHOSPHATASE 48 U/L (45-117); BUN 14 mg/dl (7-24); CHLORIDE 100 mmol/L (98-107); CREATININE 1.15 mg/dL (0.70-1.30); LIPASE 86 U/L (73-393); POTASSIUM 3.3 mmol/L (3.5-5.1); SGOT/AST 11 IU/L (3-35); SGPT/ALT 30 U/L (12-78); SODIUM 137 mmol/L (136-145); TOTAL PROTEIN 6.4 gm/dL (6.4-8.2)
[2019-03-21 10:52] LABS: TROPONIN I < 0.015 ng/ml (<0.045)
--- NOTE | 2019-03-21 11:05 | NUR ---
PT UP AT BEDSIDE TO URINATE, UNABLE. STATES HE DID NOT NEED TO URINATE BUT WAS TRYING TO PROVIDE THE REQUESTED SPECIMEN. UNABLE.
[2019-03-21 12:06] LABS: BILIRUBIN NEGATIVE (NEGATIVE); BLOOD NEGATIVE (NEGATIVE); CLARITY SL CLOUDY (CLEAR); COLOR YELLOW (YELLOW); GLUCOSE NEGATIVE (NEGATIVE); KETONE NEGATIVE (NEGATIVE); LEUKO ESTERASE NEGATIVE (NEGATIVE); NITRITE NEGATIVE (NEGATIVE); UROBILINOGEN 0.2 E.U./dl (0.2-1.0)
[2019-03-21 12:39] LABS: MUCOUS TRACE; WBC 0-2 wbc/hpf (0-5)
--- NOTE | 2019-03-21 12:39 | NUR ---
PT IN CT AT THIS TIME. LUNCH TRAY HAS ARRIVED FOR PT PER HIS REQUEST.--TERRI MITTAL RN
[2019-03-21 12:51] VITALS: BP 110/48
--- NOTE | 2019-03-21 12:54 | NUR ---
PT SITTING UP,EATING ALL OF HIS LUNCH---TERRI MITTAL RN
--- NOTE | 2019-03-21 13:17 | NUR ---
A 73, admitted to , under the services of MILO Murguia DO with a diagnosis of DYSPNEA, GENERALIZED WEAKENS, COPD EXACERBATION, HYPOKALEMIA. Chief complaint is WEAKNESS. Patient arrived via stretcher from ER. Monitor applied. Initial assessment completed. Vital signs taken and recorded. MILO MURGUIA DO notified of admission to the unit. Orders received. See assessment for past medical history, medications and allergies. Patient and/or family oriented to unit. [address] visitation policy reviewed. Clothing/patient valuable form completed. LISBET HILTON
[2019-03-21 13:41] VITALS: BP 126/56
--- NOTE | 2019-03-21 13:46 | NUR ---
MED REC COMPLETED. MEDICATIONS WERE ALREADY CONTINUED UPON PATIENT ARRIVING TO THE FLOOR.
--- NOTE | 2019-03-21 14:08 | NUR ---
NOTIFIED OF NEW CONSULT.
[2019-03-21 16:00] VITALS: BP 109/45
[2019-03-21 20:00] VITALS: BP 111/51
[2019-03-22] VITALS: BP 125/61
[2019-03-22 07:17] LABS: BUN 16 mg/dl (7-24); CHLORIDE 106 mmol/L (98-107); CHOLESTEROL 133 mg/dL (<200); CREATININE 0.99 mg/dL (0.70-1.30); PHOSPHOROUS 3.3 mg/dL (2.5-4.9); POTASSIUM 3.7 mmol/L (3.5-5.1); SGOT/AST 10 IU/L (3-35); SGPT/ALT 27 U/L (12-78); SODIUM 139 mmol/L (136-145); TOTAL PROTEIN 6.2 gm/dL (6.4-8.2); TRIGLYCERIDES 41 mg/dl (<150); VLDL CHOLESTEROL 8 mg/dL (6-40)
[2019-03-22 07:19] LABS: HEMATOCRIT 44.1 % (42.0-52.0); HEMOGLOBIN 14.5 g/dl (14.0-18.0); MEAN CELL VOLUME 92.1 fl (80.0-94.0); MEAN CORPUSCULAR HGB 30.3 pg (27.0-31.0); MEAN CORPUSCULAR HGB CONC 32.9 g/dl (33.0-37.0); MEAN PLATELET VOLUME 10.1 fl (9.6-12.3); PLATELET COUNT AUTOMATED 248 10*3/uL (130-400); RED BLOOD COUNT 4.79 10*6/uL (4.50-5.90); RED CELL DISTRI WIDTH 12.4 % (0-14.5); WHITE BLOOD COUNT 7.3 10*3/uL (4.8-10.8)
[2019-03-22 07:24] LABS: ALKALINE PHOSPHATASE 44 U/L (45-117); HDL CHOLESTEROL 65 mg/dl (40-60); LDL CHOLESTEROL 60 mg/dL (9-159); THYROID STIM HORMONE (HS) 0.055 uIU/ml (0.358-4.75)
[2019-03-22 07:36] LABS: PLATELET SUFFICIENCY NORMAL (NORMAL); TOTAL CELLS COUNTED 100 #CELLS
[2019-03-22 07:50] LABS: VITAMIN D, 25-HYDROXY 35.7 ng/mL (30-100)
[2019-03-22 08:00] VITALS: BP 130/72
--- NOTE | 2019-03-22 09:00 | NUR ---
Ict Sales Representative in to talk to patient. Patient states lives at home with friend. There are few steps in the home. Physician: [place] health services: none Patient's level of ADLs: INDEPENDENT Patient has working utilities: all working DME: walker Follow-up physician's appointment after d/c: will be made by hospitalist nurse director upon discharge Does patient want to access PORTAL?: no Discharge plan discussed with patient and friend as patient was ambulating in the jean with walker and friend, gait steady, patient states he will return home when medically stable and denies any home needs. GREGG KHAN
--- NOTE | 2019-03-22 10:08 | NUR ---
PT INSTRUCTED ON USE OF FV. PT EXHIBITS PROPER TECHNIQUE. PERFORMED X 10 WITH GOOD EFFORT. IMNSTRUCTED TO PERFORM EVERY HOUR. WILL CONTINUE TO REASSESS.
--- NOTE | 2019-03-22 11:03 | NUR ---
PHYSICAL THERAPY Physical therapy screen completed. Pt is independent ambulating in the hallways using FWW with with no difficulty; using oxygen. Reports no PT needs at this time and no concerns for returning home. Thank you for your referral. Harper Matthews, PT, DPT
[2019-03-22 12:00] VITALS: BP 136/76
--- NOTE | 2019-03-22 14:40 | NUR ---
OT NOTE Pt was seen this P.M. 1:1 for 20 minute OT session. Upon arrival pt was supine in bed. Pt identified by name and and had no complaints at this time. Pt presented to therapy with continuous 2L-O2 via NC which he remained on throughout the entire session. Pt transferred supine to sit EOB with SBA. While sitting EOB pt was educated on and provided a handout for deep breathing technique. pursed lip breathing, and energy conservation techniques. Pt verbalized understanding and all questions answered. Pt was then educated on and demonstrated use of LB adaptive equipment for increased I in lower body dressing and bathing. Pt completed simulated lower body bathing using long handled sponge with SBA. Pt then doffed B socks with use of dry cleaner hand and SBA and verbal prompts for first attempt for sequencing. Pt then donned B socks with use of sock aid and SBA again requiring verbal prompts during first attempt for sequencing. Pt then transferred back into bed sit to supine with SBA. There he was left with call light in hand, tray table in place, and family at bedside. Continue with rec D/C plan to home with . ANGELICA Agosto/Tramaine
[2019-03-22 16:00] VITALS: BP 121/54
[2019-03-22 20:00] VITALS: BP 107/43
[2019-03-23] VITALS: BP 125/65
--- NOTE | 2019-03-23 00:48 | NUR ---
24 HR chart check completed.
--- NOTE | 2019-03-23 00:50 | NUR ---
PATIENT MEDICATED EARLY WITH 0400 REQUIP PER HIS REQUEST FOR RESTLESS LEGS. DOCTOR CHANGED TIMES OF ADMINISTRATION AND SAID HE COULD HAVE IT EARLY AT NIGHT WHEN HE REQUESTED IT. RESTING IN BED WITH NO COMPLAINTS AT THIS TIME. DENIES COMPLAINTS OF PAIN. WILL CONTINUE TO MONITOR. CALL LIGHT IN REACH.
[2019-03-23 08:00] VITALS: BP 122/64
--- NOTE | 2019-03-23 09:00 | NUR ---
case management visits with patient, he will return home when medically stable and denies any home needs
[2019-03-23 12:00] VITALS: BP 117/53
[2019-03-23] MEDS ORDERED: AZITHROMYCIN500 M2 PO (12:25)
[2019-03-23] MEDS ORDERED: PREDNISONE10 MG PO (12:25)
--- NOTE | 2019-03-23 13:00 | NUR ---
Discharge instructions reviewed with patient/family. Patient receptive and verbalizes understanding. Follow-up care arranged. Written instructions given to patient/family. MIRANDA VICTORIA
--- NOTE | 2019-03-23 13:15 | NUR ---
Discharged via wheelchair in care of significant other.
--- NOTE | 2019-03-24 15:59 | NUR ---
OCCUPATIONAL THERAPY CO-SIGN I approve of the Occupational Therapy notes written above. ARVIND TORRES OTR/Tramaine
== END 2019-03-23 13:15 | disposition home or self-care (01) | DRG 871 ==
LOC: ED 09:57 → 4E 12:07 → EDHOLD 12:07 → 4E 12:33
PROVIDERS: Nurse Practitioner Family; Registered Nurse; ADMIT Internal Medicine
DX: A41.9 Sepsis, unspecified organism (principal); J18.9 Pneumonia, unspecified organism; J96.21 Acute and chronic respiratory failure with hypoxia; J44.1 Chronic obstructive pulmonary disease with (acute) exacerbation; E44.0 Moderate protein-calorie malnutrition; J44.0 Chronic obstructive pulmonary disease with (acute) lower respiratory infection; R65.20 Severe sepsis without septic shock; K21.9 Gastro-esophageal reflux disease without esophagitis; K58.9 Irritable bowel syndrome, unspecified; N40.0 Benign prostatic hyperplasia without lower urinary tract symptoms; I73.9 Peripheral vascular disease, unspecified; G25.81 Restless legs syndrome; E80.6 Other disorders of bilirubin metabolism; E87.6 Hypokalemia; Z99.81 Dependence on supplemental oxygen; Z90.49 Acquired absence of other specified parts of digestive tract; Z80.3 Family history of malignant neoplasm of breast; Z79.82 Long term (current) use of aspirin; Z88.1 Allergy status to other antibiotic agents; Z88.5 Allergy status to narcotic agent; Z88.8 Allergy status to other drugs, medicaments and biological substances; Z91.048 Other nonmedicinal substance allergy status

== ENCOUNTER 2019-11-01 14:29 | Inpatient (IN) | payer MEDICARE, OTHER ==
[~2019-11-01] VITALS: Ht 170.2 cm; Wt 74.4 kg
[~2019-11-01 14:29] MED LIST changes: +AZITHROMYCIN500 M2 PO
[2019-11-01 14:34] VITALS: BP 131/54
[2019-11-01 15:10] LABS: BASO % 0.2 % (0.0-1.0); EOS % 0.6 % (1.0-4.0); LYMPH # 0.8 10*3/uL (1.3-4.4); LYMPH % 16.1 % (27.0-41.0); MEAN CELL VOLUME 94.1 fl (80.0-94.0); MEAN CORPUSCULAR HGB CONC 32.9 g/dl (33.0-37.0); MEAN PLATELET VOLUME 9.4 fl (9.6-12.3); MONO # 0.5 10*3/uL (0.1-1.0); NEUT # 3.3 10*3/uL (2.3-7.9); NEUT % 71.9 % (47.0-73.0); PLATELET COUNT AUTOMATED 157 10*3/uL (130-400); RED BLOOD COUNT 4.78 10*6/uL (4.50-5.90); RED CELL DISTRI WIDTH 13.4 % (0-14.5); WHITE BLOOD COUNT 4.7 10*3/uL (4.8-10.8)
[2019-11-01 15:28] LABS: ACT PARTIAL THROMBO TIME 29.5 SECONDS (20.0-32.1)
[2019-11-01 15:30] VITALS: BP 126/60
[2019-11-01 15:35] LABS: ALBUMIN 3.4 gm/dl (3.1-4.5); BUN 14 mg/dl (7-24); CHLORIDE 101 mmol/L (98-107); CREATININE 1.13 mg/dL (0.70-1.30); LIPASE 76 U/L (73-393); POTASSIUM 4.1 mmol/L (3.5-5.1); SGOT/AST 18 IU/L (3-35); SGPT/ALT 20 U/L (12-78); SODIUM 135 mmol/L (136-145); TOTAL PROTEIN 7.1 gm/dL (6.4-8.2)
[2019-11-01 15:36] LABS: ALKALINE PHOSPHATASE 55 U/L (45-117)
[2019-11-01 15:37] LABS: TROPONIN I < 0.015 ng/ml (<0.045)
[2019-11-01 17:15] VITALS: BP 121/74
[2019-11-01 18:18] VITALS: BP 118/56
[2019-11-01 18:43] VITALS: BP 114/55
--- NOTE | 2019-11-01 18:43 | NUR ---
A 74, admitted to , under the services of AJ Hopkins DO with a diagnosis of resp failure. Chief complaint is sOB SONCE WEDNESDAY. Patient arrived via stretcher from ER. Monitor applied. Initial assessment completed. Vital signs taken and recorded. AJ HOPKINS DO notified of admission to the unit. Orders received. See assessment for past medical history, medications and allergies. Patient and/or family oriented to unit. [facility] visitation policy reviewed. Clothing/patient valuable form completed. ELLA BLANK
--- NOTE | 2019-11-01 19:25 | NUR ---
PT IS SLEEPING, PULSE OX IS 88% ON 4L. RESP HERE AND MADE AWARE.
--- NOTE | 2019-11-01 19:26 | NUR ---
DR. CALVO BEEPED FOR CONSULT.
[2019-11-01 20:00] VITALS: BP 137/58
[2019-11-01 20:32] LABS: ABG BASE EXCESS 1.7 mmol/L (-2.0-2.0); ARTERIAL BLOOD GAS PH 7.413 (7.35-7.45)
--- NOTE | 2019-11-01 20:45 | NUR ---
1999 DR. CALVO NOTIFIED OF CONSULT. WILL SEE PT IN THE AM. 2024 ABG'S DRAWN VIA RT. FLUID BOLUS HUNG ORDERED
--- NOTE | 2019-11-01 21:34 | NUR ---
DR. DOAN CCALLED WITH CONSULT. NO NEW ORDERS RECEIVED.
--- NOTE | 2019-11-01 22:18 | NUR ---
PT REQUESTING REQUIP.DR. YIP CALLED AND INFORMED.
[2019-11-02] VITALS: BP 136/53
--- NOTE | 2019-11-02 00:53 | NUR ---
URINE SPECIMENS OBTAINED FOR STREP PNUEMONIA AND LEGIONELLA.
--- NOTE | 2019-11-02 02:09 | NUR ---
SPILLED URINAL IN THE BED. COMPLETE BED CHANGE DONE. MARINELLI. PULSE OX 92% AFTER RESTING. MOIST COUGH NOTED PRODUCTIVE OF CLEAR SPUTUM.
--- NOTE | 2019-11-02 02:39 | NUR ---
NOVEL ROBERTSON VIRUS CONT TO SHOW UP UNCOLLECTED IN LAB SCREEN. LAB CALLED - SPECIMEN WAS RECEIVED 10/31 AT APPROX 1700. SPECIMEN MARKED COLLECTED DUE TO THIS.
[2019-11-02 04:00] VITALS: BP 128/56
--- NOTE | 2019-11-02 04:12 | NUR ---
RESTING IN BED WITH EYES CLOSED. APPEARS TO BE SLEEPING.
[2019-11-02 05:07] LABS: HEP B CORE AB, IGM Negative (Negative); HEPATITIS B SURFACE AG Negative (Negative); HEPATITIS C VIRUS ANTIBODY <0.1 s/co (0.0-0.9)
--- NOTE | 2019-11-02 06:04 | NUR ---
STOOD AT BEDSIDE TO VOID WITH 1 ASSIST. MARINELLI. TOLERATED FAIR. HEP LOCK INTACT SARIKA. 02 INTACT AT 4L. PULSE OX 95%, ISOLATION MAINTAINED. CONDITION GUARDED.
[2019-11-02 06:17] LABS: BASO % 0.3 % (0.0-1.0); HEMATOCRIT 42.4 % (42.0-52.0); LYMPH % 30.8 % (27.0-41.0); MEAN CELL VOLUME 95.1 fl (80.0-94.0); MEAN CORPUSCULAR HGB 30.9 pg (27.0-31.0); MEAN CORPUSCULAR HGB CONC 32.5 g/dl (33.0-37.0); MEAN PLATELET VOLUME 9.6 fl (9.6-12.3); MONO # 0.5 10*3/uL (0.1-1.0); NEUT # 1.8 10*3/uL (2.3-7.9); NEUT % 52.6 % (47.0-73.0); PLATELET COUNT AUTOMATED 129 10*3/uL (130-400); RED BLOOD COUNT 4.46 10*6/uL (4.50-5.90); RED CELL DISTRI WIDTH 13.6 % (0-14.5); WHITE BLOOD COUNT 3.4 10*3/uL (4.8-10.8)
[2019-11-02 06:24] LABS: ALBUMIN 2.8 gm/dl (3.1-4.5); BUN 14 mg/dl (7-24); CHLORIDE 105 mmol/L (98-107); CPK 99 U/L (39-308); POTASSIUM 3.8 mmol/L (3.5-5.1); SGOT/AST 21 IU/L (3-35); SGPT/ALT 16 U/L (12-78); SODIUM 135 mmol/L (136-145); TOTAL PROTEIN 6.1 gm/dL (6.4-8.2)
[2019-11-02 06:37] LABS: ALKALINE PHOSPHATASE 44 U/L (45-117); THYROID STIM HORMONE (HS) 0.146 uIU/ml (0.358-4.75)
--- NOTE | 2019-11-02 07:00 | NUR ---
ARRIVED ON SHIFT, REPORT RECEIVED FROM OFF GOING NURSE. ASSUMED CARE OF PATIENT, INTRODUCED SELF TO PATIENT, BED IN LOW POSITION WITH WHEEL LOCKS ENGAGED, SR UP X 2 FOR TURNING AND REPOSITIONING, CALL LIGHT WITHIN REACH, NO NEEDS VOICED AT THIS TIME. WHITE BOARD UPDATED.
[2019-11-02 08:00] VITALS: BP 116/60
--- NOTE | 2019-11-02 08:21 | NUR ---
Shift chart check completed.
[2019-11-02 12:00] VITALS: BP 114/52
[2019-11-02 16:00] VITALS: BP 128/66
[2019-11-02 20:00] VITALS: BP 127/58
--- NOTE | 2019-11-02 20:00 | NUR ---
IN TO ASSESS PATIENT AT THIS TIME. RESTING IN BED, PULSE OX 93-95% ON 4LNC. PATIENT STATES THAT HE FEELS SHORT OF BREATH AT REST AND WITH MINIMAL EXERTION, AND THAT HE HAS BEEN FEELING THIS WAY FOR A COUPLE OF DAYS NOW. STATES THAT HE TYPICALLY WEARS 2L VIA NC AT HOME. ALSO COMPLAINS OF NAUSEA AND POOR APPETITE. WILL MEDICATE WITH ZORFAN WITH EVENING MEDS. BED LOCKED, AND IN THE LOWEST POSITION. CALL LIGHT IN REACH. PATIENT ENCOURAGED TO USE CALL LIGHT PRIOR TO BED EXIT. ALSO EDUCATED ON WEIGHT SHIFTING Q2H TO PREVENT SKIN BREAK DOWN. WILL CONTINUE TO MONITOR.
--- NOTE | 2019-11-02 21:25 | NUR ---
RESTORIL AND ZOFRAN ADMINISTERED WITH NIGHT TIME MEDICATION PER PT REQUEST FOR NAUSEA AND INSOMNIA.
--- NOTE | 2019-11-02 22:37 | NUR ---
IN TO FLUSH PATIENTS IV, PATIENT ASKED TO USE THE URINAL. WHEN SITTING THE PATIENT UP TO THE EDGE OF THE BED, PATIENT FALLING OVER BACK INTO BED AND NEEDING ASSISTANCE TO HOLD HIMSELF UP. SATS DROPPED TO MID 80'S DURING THIS TIME. PATIENT WAS INCREASINGLY SHORT OF BREATH AND WHEEZING, I INCREASED HIS O2 TO 5L AT THIS TIME. SATTING 91%. WILL MONITOR.
--- NOTE | 2019-11-02 22:42 | NUR ---
SPOKE WITH DR YIP REGARDING PATIENT DESATTING AND INCREASE IN WORK OF BREATHING. STATES TO MAKE RESPIRATORY AWARE, AND TO ADMINISTER INHALER.
--- NOTE | 2019-11-02 23:04 | NUR ---
VENTOLIN INHALER ADMINISTERED, RESPIRATORY PLACED PATIENT ON 50% VENTURI MASK AT THIS TIME. SATTING 94%.
--- NOTE | 2019-11-02 23:06 | NUR ---
PT CHANGED TO A 50% VM IN ORDER TO KEEPS SATS ABOVE 90% DURING SLEEP. GRABIEL. WELL. SATS 94-96%.
[2019-11-03] VITALS: BP 128/59
--- NOTE | 2019-11-03 00:16 | NUR ---
PATIENT SLEEPING AT THIS TIME. NO SIGNS OF DISCOMFORT OR DISTRESS. PULSE OX 97%.
--- NOTE | 2019-11-03 01:14 | NUR ---
ASSISTED PATIENT TO SIDE OF BED TO USE THE URINAL. PATIENTS OXYGEN REMAINED AT 94%, AUDIBLE WHEEZES WERE HEARD ON EXERTION. WILL CONTINUE TO MONITOR.
--- NOTE | 2019-11-03 02:56 | NUR ---
24 HOUR CHART CHECK COMPLETE.
--- NOTE | 2019-11-03 04:00 | NUR ---
DR YIP NOTIFIED OF TEMP OF 101.7 AND NO ANTIPYRETIC ON EMAR. AWAITING NEW ORDERS.
--- NOTE | 2019-11-03 04:39 | NUR ---
TYLENOL ADMINISTERED FOR FEVER OF 101.7.
--- NOTE | 2019-11-03 06:09 | NUR ---
NURSING PHOTOGRAPHIC TECHNICIAN AND DR YIP NOTIFIED OF +COVID SWAB.
[2019-11-03 06:16] LABS: EOS % 0.3 % (1.0-4.0); HEMATOCRIT 39.8 % (42.0-52.0); LYMPH # 0.9 10*3/uL (1.3-4.4); LYMPH % 29.1 % (27.0-41.0); MEAN CELL VOLUME 93.2 fl (80.0-94.0); MEAN CORPUSCULAR HGB 30.7 pg (27.0-31.0); MEAN CORPUSCULAR HGB CONC 32.9 g/dl (33.0-37.0); MEAN PLATELET VOLUME 9.9 fl (9.6-12.3); MONO # 0.4 10*3/uL (0.1-1.0); MONO % 11.7 % (3.0-9.0); NEUT # 1.8 10*3/uL (2.3-7.9); NEUT % 58.6 % (47.0-73.0); PLATELET COUNT AUTOMATED 127 10*3/uL (130-400); RED BLOOD COUNT 4.27 10*6/uL (4.50-5.90); RED CELL DISTRI WIDTH 13.4 % (0-14.5)
[2019-11-03 06:40] LABS: ALBUMIN 2.8 gm/dl (3.1-4.5); ALKALINE PHOSPHATASE 41 U/L (45-117); BUN 17 mg/dl (7-24); CHLORIDE 105 mmol/L (98-107); CREATININE 1.31 mg/dL (0.70-1.30); POTASSIUM 3.7 mmol/L (3.5-5.1); SGOT/AST 33 IU/L (3-35); SGPT/ALT 23 U/L (12-78); SODIUM 138 mmol/L (136-145); TOTAL PROTEIN 5.9 gm/dL (6.4-8.2)
--- NOTE | 2019-11-03 06:45 | NUR ---
IN TO REASSESS PATIENTS TEMPERATURE. PATIENT STATES HE FEELS MUCH BETTER THIS MORNING AND FELT IF HIS TEMPERATURE BROKE. ON REASSESSMENT TEMP WAS 97.5. PATIENT STATES HE HAS AN APPETITE THIS MORNING AND IS PLANNING ON EATING A GOOD BREAKFAST. ALSO STATES THAT HE FEELS A LITTLE LESS WEAK. WILL CONTINUE TO MONITOR. VENTOLIN INHALER ADMINSTERED AT THIS TIME.
--- NOTE | 2019-11-03 07:00 | NUR ---
ARRIVED ON SHIFT, REPORT RECEIVED FROM OFFGOING NURSE, ASSUMED CARE OF PATIENT.
--- NOTE | 2019-11-03 07:30 | NUR ---
INTRODUCED SELF TO PATIENT, BED IN LOW POSITION WITH WHEEL LOCKS ENGAGED, SR UP X 2 FOR TURNING AND REPOSITIONING, CALL LIGHT WITHIN REACH, PATIENT ABLE TO SIT ON SIDE OF BED INDEPENDENTLY. NO NEEDS VOICED AT THIS TIME, WHITE BOARD UPDATED.
[2019-11-03 08:00] VITALS: BP 116/54
--- NOTE | 2019-11-03 08:40 | NUR ---
OT NOTE Occupational therapy order received and chart reviewed. Patient is positive for COVID19. OTR and PT spoke with nursing fence manufacture supervisor, Cyrus, regarding OT evaluation and futher therapy. Cyrus stating he will speak with the MDs to develop a protocol for therapy moving forward. At this time, OT evaluation on hold and will await for further MD/nursing fence manufacture supervisor clarification. Thank you for the referral. Carrie Mir, OTR/L
--- NOTE | 2019-11-03 08:40 | NUR ---
CALL PLACED TO DR. ORTIZ, NOTIFIED OF INCREASE OF SOFA SCORE FROM 2-3, HE ADVISED JUST LET DR. DOAN KNOW WHEN HE COMES IN.
--- NOTE | 2019-11-03 08:43 | NUR ---
CALL PLACED TO DR. JACQUES, SPOKE WITH KYLAH, ADVISED OF + ELVIN, SHE VERSED SHE WILL MESSAGE HIM FOR CALL BACK.
--- NOTE | 2019-11-03 09:00 | NUR ---
PATIENT UP IN CHAIR NEXT TO BED, COMPLETED COMPLETE CHAIR BATH, DECLINED TO BE SHAVED, DISCUSSED PLACING GOMEZ CATHETER WITH PATIENT, HE DECLINED, HE IS ABLE TO USE URINAL INDEPENDENTLY.
--- NOTE | 2019-11-03 09:00 | NUR ---
Belt And Link Assembly Supervisor in to talk to patient. Patient states lives at home with girlfriend. There are no steps in the home. Physician: roddy [facility] Home health services: none at present Patient's level of ADLs: INDEPENDENT Patient has working utilities: all working DME: home oxygen [employer], nebulizer and walker Follow-up physician's appointment after d/c: will be made by hospitalist nurse director upon discharge Does patient want to access PORTAL?: no Discharge plan discussed with patient's girlfriend Shaneka. she stated patient lives at home with her, he is independent in adls and ambulation, uses a walker occasionally for ambulation, but most of the time he is has steady ambulation with no assistive device. he drives. he has home oxygen from [employer] and a nebulizer. discussed with her a possibly short term half-way for rehab if patient was too weak to return home, educated her that a SNF would offer 24 hour care and 5 days of therapy. Shaneka stated she would rather patient return home. also educated her that [facility] could be ordered and educated her about their services. she stated she would be at home with patient when he is discharged and didn't want him going to the SNF, she would accept home health only if he needed it. given her the choice of companies and she chose [facility] if needed, case management will follow . GREGG KHAN
--- NOTE | 2019-11-03 09:14 | NUR ---
PHYSICAL THERAPY Eval received and chart reviewed pt tested + for COVID at this time. Spoke with nursing caddy/caddie supervisor Cyrus regarding therapy. He will speak with and discuss protocol for therapy moving forward. At this time will hold PT eval and await further input from nsg caddy/caddie supervisor and MD. Bebe June PT
--- NOTE | 2019-11-03 09:14 | NUR ---
Patient being started on Remdesivir under Emergency Use Authorization for COVID-19. For adults no requiring mechanical ventilation and/or ECMO: Dose = 200 mg IV on day #1, then 100 mg iv daily for 4 more doses, total 5 days of therapy. Patient's eGFR today is 53, AST = 21, ALT = 16. Liver enzymes must be obtained daily while receiving Remdesivir. Information in the Fact Sheet for Patients and Parent/Caregivers must be communicated with the patient prior to receiving Remdesivir. This information was provided to the nurse to be given to the patient. Any adverse reactions must be reported within 7 calendar days from onset of event. Submitted reports should include in the field name "Describe Event, Problem, or Porduct Use/Medication Error" a statement "Remdesivir under Emergency Use Authorization (EUA)." Tyler Jimenez, PharmD
--- NOTE | 2019-11-03 09:45 | NUR ---
REVIEWED FACT SHEET FOR REMDESIVIR REVIEWED WITH PATIENT HE IS AGRREABLE TO RECEIVED MEDICATION.
--- NOTE | 2019-11-03 10:00 | NUR ---
DR. DOAN IN TO SEE PATIENT, HE REQUESTS PATIENT PRONE MUCH POSSIBLE, OKAY TO START AFTER REMDESIVIR INFUSED.
[2019-11-03 10:45] LABS: ABG BASE EXCESS 1.1 mmol/L (-2.0-2.0); ARTERIAL BLOOD GAS PH 7.401 (7.35-7.45)
--- NOTE | 2019-11-03 10:45 | NUR ---
ARNAV COMPLETED PRONED PATIENT PER DR. DOAN, PLACED LEADS ON PATIENTS BACK.
--- NOTE | 2019-11-03 11:00 | NUR ---
PATIENT UNABLE TO TOLERATE LYING IN PRONE POSITION.
--- NOTE | 2019-11-03 11:58 | NUR ---
CALL PLACED TO DR. DOAN ADVISED PATIENT UNABLE TO PRONE, ALSO RESULTS OF D.DIMER OF 1.94 NO NEW ORDERS, AT THIS TIME.
[2019-11-03 12:00] VITALS: BP 127/51
--- NOTE | 2019-11-03 12:15 | NUR ---
DR. JACQUES IN TO SEE PATIENT, REVIEWED PATIENTS STATUS, HE VERSED HE WILL CONTINUE THE LEVAQUIN AND PIPERACILLIN.
--- NOTE | 2019-11-03 15:20 | NUR ---
PATIENT HAVING INCREASE IN "JUMPY LEGS", PATIENT STATES HE TAKES 3 TIMES DAILY CALL PLACED TO HOSPITALIST LINE SPOKE WITH DR. ORTIZ ORDER RECEIVED TO INCREASE TO TID, AND A NOW DOSE.
--- NOTE | 2019-11-03 15:52 | NUR ---
PATIENT C/O UNEASY STOMACH MEDICATED WITH ZOFRAN ORDERED IV PUSH.
[2019-11-03 16:00] VITALS: BP 121/60
--- NOTE | 2019-11-03 16:52 | NUR ---
PATIENT REPORTS GOOD RELIEF FROM ZOFRAN GIVEN X 1 HOUR AGO.
[2019-11-03 18:26] LABS: ABG BASE EXCESS 2.8 mmol/L (-2.0-2.0); ARTERIAL BLOOD GAS PH 7.448 (7.35-7.45)
[2019-11-04] VITALS: BP 99/35
--- NOTE | 2019-11-04 01:29 | NUR ---
PULSE OX READING 80%. FINGER SENSOR SWITCHED TO TAPE SENSOR, O2 INCREASED TO 10L VIA HIGHFLOW NASAL CANNULA. PATIENT IS MOUTH BREAHTING, CANNULA PLACED IN MOUTH. PULSE OX NOW 98%. CALL LIGHT IS WITHIN REACH, WILL CONTINUE TO MONITOR.
--- NOTE | 2019-11-04 03:39 | NUR ---
PULSE OX REMAINS IN HIGH 90'S, O2 TITRATED DOWN TO 8L VIA HIGH FLOW NASAL CANNULA. CANNULA STILL IN PATIENTS MOUTH.
[2019-11-04 04:00] VITALS: BP 100/46
--- NOTE | 2019-11-04 04:52 | NUR ---
PATIENT ASSISTED TO USE URINAL, AM LABS OBTAINED, AND AM MEDICATIONS GIVEN. PATIENT TOLERATED WELL. BED IS LOW, LOCKED, ALARMED, AND CALL LIGHT IS WITHIN REACH. WILL CONTINUE TO MONITOR.
[2019-11-04 05:49] LABS: BASO % 0.4 % (0.0-1.0); HEMATOCRIT 41.6 % (42.0-52.0); LYMPH # 1.2 10*3/uL (1.3-4.4); LYMPH % 45.7 % (27.0-41.0); MEAN CELL VOLUME 92.9 fl (80.0-94.0); MEAN CORPUSCULAR HGB CONC 33.4 g/dl (33.0-37.0); MEAN PLATELET VOLUME 9.8 fl (9.6-12.3); MONO # 0.3 10*3/uL (0.1-1.0); MONO % 13.4 % (3.0-9.0); NEUT % 40.1 % (47.0-73.0); PLATELET COUNT AUTOMATED 135 10*3/uL (130-400); RED BLOOD COUNT 4.48 10*6/uL (4.50-5.90); RED CELL DISTRI WIDTH 13.2 % (0-14.5); WHITE BLOOD COUNT 2.5 10*3/uL (4.8-10.8)
[2019-11-04 06:04] LABS: ALBUMIN 2.9 gm/dl (3.1-4.5); ALKALINE PHOSPHATASE 42 U/L (45-117); BUN 18 mg/dl (7-24); CHLORIDE 104 mmol/L (98-107); CREATININE 1.24 mg/dL (0.70-1.30); POTASSIUM 3.7 mmol/L (3.5-5.1); SGOT/AST 42 IU/L (3-35); SGPT/ALT 27 U/L (12-78); SODIUM 137 mmol/L (136-145); TOTAL PROTEIN 6.5 gm/dL (6.4-8.2)
--- NOTE | 2019-11-04 06:30 | NUR ---
PATIENT ASSISTED FROM BED TO CHAIR. CALL LIGHT IS WITHIN REACH.
--- NOTE | 2019-11-04 06:40 | NUR ---
PRN ZOFRAN GIVEN PER ORDER. CALL LIGHT IS WITHIN REACH.
--- NOTE | 2019-11-04 07:00 | NUR ---
ARRIVED ON SHIFT, REPORT RECEIVED FROM OFFGOING NURSE. ASSUMED CARE OF PATIENT.
--- NOTE | 2019-11-04 07:40 | NUR ---
INTRODUCED SELF TO PATIENT, BED IN LOW POSITION WITH WHEEL LOCKS ENGAGED, SIDE RAILS UP X 2 FOR TURNING AND REPOSITIONING. CALL LIGHT WITHIN REACH NO NEEDS VOICED AT THIS TIME.
[2019-11-04 08:00] VITALS: BP 106/66
--- NOTE | 2019-11-04 08:22 | NUR ---
PATIENTS MEWS SCORE 4, CALL PLACED TO HOSPITALIST LINE SPOKE WITH DR. ORTIZ ADVISED OF PATIENTS O2 SATS DROPPING TO 82, AND CHANGE IN MEWS SCORE.
--- NOTE | 2019-11-04 08:54 | NUR ---
CALL RECEIVEED FROM DR. JACQUES ADVISED OF PATIENT HAVING OFF AND ON ELEVATED TEMPS, ORDER RECEIVED FOR TOCILIZUMAD WITH PHARMACY TO DOSE, NOTIFIED PHARMACY.
[2019-11-04 12:00] VITALS: BP 122/47
[2019-11-04 16:00] VITALS: BP 103/52
[2019-11-04 17:59] LABS: ABG BASE EXCESS 2.5 mmol/L (-2.0-2.0); ARTERIAL BLOOD GAS PH 7.412 (7.35-7.45)
--- NOTE | 2019-11-04 19:00 | NUR ---
PATIENT VOICED NO COMPLAINTS. QUESTIONS AND CONCERNS ANSWERED. PATIENT STATED THAT HE FELT BETTER TODAY. NO OVERT DISTRESS NOTED CALL LIGHT LEFT WITHIN REACH.
[2019-11-04 20:00] VITALS: BP 103/58
--- NOTE | 2019-11-04 21:03 | NUR ---
PATIENT MEDIATED WITH ZOFRAN AND RESTORIL FOR C/O NAUSEA AND INSOMNIA. WILL MONITOR
--- NOTE | 2019-11-04 22:03 | NUR ---
RESTORIL AND ZOFRAN APPEARS EFFECTIVE. RESTING QUIETLY IN CHAIR, EYES CLOSED. NO DISTRESS NOTED. CALL LIGHT WITHIN REACH
[2019-11-05] VITALS: BP 102/63
--- NOTE | 2019-11-05 01:00 | NUR ---
Pt placed on a 50% venti mask. SpO2 95%
--- NOTE | 2019-11-05 01:10 | NUR ---
REST THERAPIST ASKED TO PLACE PATIENT ON FACE MASK. PATIENT IS A MOUTH BREATHER AT NIGHT AND DESATS TO LOW 80'S. PATIENT WAS PLACED ON VENTURI MASK AT 15L AT 50% PER REST THERAPIST.
[2019-11-05 05:41] LABS: ALBUMIN 2.7 gm/dl (3.1-4.5); ALKALINE PHOSPHATASE 38 U/L (45-117); BUN 23 mg/dl (7-24); CHLORIDE 106 mmol/L (98-107); CREATININE 1.28 mg/dL (0.70-1.30); LDH 208 U/L (87-241); POTASSIUM 4.4 mmol/L (3.5-5.1); SGOT/AST 39 IU/L (3-35); SGPT/ALT 27 U/L (12-78); SODIUM 140 mmol/L (136-145); TOTAL PROTEIN 6.3 gm/dL (6.4-8.2)
[2019-11-05 05:43] LABS: HEMATOCRIT 41.9 % (42.0-52.0); MEAN CELL VOLUME 92.3 fl (80.0-94.0); MEAN CORPUSCULAR HGB 30.8 pg (27.0-31.0); MEAN CORPUSCULAR HGB CONC 33.4 g/dl (33.0-37.0); PLATELET COUNT AUTOMATED 154 10*3/uL (130-400); RED BLOOD COUNT 4.54 10*6/uL (4.50-5.90); RED CELL DISTRI WIDTH 13.1 % (0-14.5)
[2019-11-05 05:45] LABS: CPK 491 U/L (39-308)
[2019-11-05 05:54] LABS: WHITE BLOOD COUNT 1.7 10*3/uL (4.8-10.8)
--- NOTE | 2019-11-05 05:56 | NUR ---
INFORMED OF CRITCAL WBC LEVEL OF 1.7, DROPPED FROM 2.5 . INFORMED OF BASELINE. STATED OK AT THIS TIME.
[2019-11-05 06:29] LABS: ATYPICAL LYMPHS 4 % (0-0); BURR CELLS FEW; PLATELET SUFFICIENCY NORMAL (NORMAL); TOTAL CELLS COUNTED 100 #CELLS
--- NOTE | 2019-11-05 07:00 | NUR ---
ARRIVED ON SHIFT, REPORT RECEIVED FROM OFF GOING SHIFT, ASSUMED CARE OF PATIENT.
[2019-11-05 07:18] LABS: ABG BASE EXCESS 3.7 mmol/L (-2.0-2.0); ARTERIAL BLOOD GAS PH 7.405 (7.35-7.45)
--- NOTE | 2019-11-05 07:30 | NUR ---
INTRODUCED SELF TO PATIENT, BED IN LOW POSITION, WHEEL LOCKS ENGAGED, SIDE RAILS UP X 2 FOR TURNING AND REPOSITIONING, CALL LIGHT WITHIN REACH, NO NEEDS VOICED AT THIS TIME. WHITE BOARD UPDATED.
[2019-11-05 08:00] VITALS: BP 113/66
[2019-11-05 12:00] VITALS: BP 107/62
[2019-11-05 16:00] VITALS: BP 122/56
[2019-11-05 17:55] LABS: ABG BASE EXCESS 4.8 mmol/L (-2.0-2.0); ARTERIAL BLOOD GAS PH 7.423 (7.35-7.45)
--- NOTE | 2019-11-05 18:04 | NUR ---
Shift chart check completed.
--- NOTE | 2019-11-05 18:10 | NUR ---
PATIENT C/O UPSET STOMACH, MEDICATED WITH ZOFRAN IV ORDERED PRN.
--- NOTE | 2019-11-05 18:30 | NUR ---
PATIENT ASSISTED FROM RECLINER TO BATHROOM, GAIT SLOW AND STEADY, O2 SATS REMAINED > 92% ENTIRE TIME, ALSO HAD LARGE BM SOFT STOOL.
--- NOTE | 2019-11-05 18:57 | NUR ---
PATIENT REPORTS GOOD RELEIF FROM ZOFRAN, REPORTS NO FURTHER NAUSEA.
--- NOTE | 2019-11-05 19:30 | NUR ---
PATIENT VOICED NO COMPLAINTS. NO OVERT DISTRESS NOTED. PATIENT STATES HE FEELS BETTER TODAY. PATIENT OXYGEN SWITCHED TO 6L NC HIGH-FLOW FROM VENTURI MASK, PATIENT TOLERATING WELL, SATS MAINTAIN MID TO HIGH 90'S. EDUCATION PROVIDED ON OXYGEN USE AND TO TRY TO STAY ON NASAL CANNULA THROUGHOUT NIGHT. RESP ARE EASY AND REGULAR, NON-PRODUCTION COUGH WITH NOTED LLL EXP WHZ. TIAGO URINE PRODUCED IN GOMEZ COLLECTION BAG. BED IS LOCKED IN LOWEST POSITION. QUESTION AND CONCERNS ANSWERED. CALL LIGHT WITHIN REACH
--- NOTE | 2019-11-05 19:49 | NUR ---
PATIENT MEDICATED WITH RESTORIL FOR C/O INSOMNIA. WILL MONITOR
[2019-11-05 20:00] VITALS: BP 130/56
--- NOTE | 2019-11-05 20:49 | NUR ---
RESTORIL EFFECTIVE. PATIENT IS RESTING QUIETLY IN BED, EYES CLOSED. NO DISTRESS NOTED. CALL LIGHT WITHIN REACH
--- NOTE | 2019-11-05 21:30 | NUR ---
FAMILY MEMBER CALLED, PASSWORD PROVIDED. QUESTION AND CONCERNS ANSWERED.
[2019-11-06] VITALS: BP 122/55
--- NOTE | 2019-11-06 00:25 | NUR ---
PATIENT STATED HE FELT LIKE HE HAD TO PEE. INFORMED THAT GOMEZ CATH WAS IN PLACE, STATED HE FELT PRESSURE. NOTED THAT GMOEZ WAS NOT SECURED TO LEG STRAP. GOMEZ CATH BALLOON DECOMPRESSED, REPOSITIONED AND REINFLATED AND SECURED. PATIENT STATED HE NO LONGER FELT PRESSURE. WILL CONTINUE TO MONITOR. CALL LIGHT WITHIN REACH.
--- NOTE | 2019-11-06 03:45 | NUR ---
PATIENT CALLED OUT, STATED THAT HE FELT PRESSURE AGAIN TO ABDOMEN REGION IF HE HAD TO PEE. GOMEZ CATH REPOSITIONING AGAIN, SECURED THEN IRRIGATED WITH NORMAL SALINE. NOTED TO HAVE SCANT AMOUNT OF BLOOD CLOTS, THEN CLEARS URINE PRODUCED. PATIENT STATED HE FELT IMMEDIATE RELIEF. WILL CONTINUE TO MONITOR. CALL LIGHT WITHIN REACH
[2019-11-06 05:57] LABS: MEAN CELL VOLUME 93.2 fl (80.0-94.0); MEAN CORPUSCULAR HGB CONC 33.3 g/dl (33.0-37.0); MEAN PLATELET VOLUME 9.7 fl (9.6-12.3); PLATELET COUNT AUTOMATED 147 10*3/uL (130-400); RED BLOOD COUNT 4.29 10*6/uL (4.50-5.90); RED CELL DISTRI WIDTH 13.3 % (0-14.5); WHITE BLOOD COUNT 2.3 10*3/uL (4.8-10.8)
[2019-11-06 06:07] LABS: ALBUMIN 2.5 gm/dl (3.1-4.5); ALKALINE PHOSPHATASE 34 U/L (45-117); BUN 20 mg/dl (7-24); CHLORIDE 108 mmol/L (98-107); CREATININE 1.16 mg/dL (0.70-1.30); LDH 184 U/L (87-241); POTASSIUM 3.9 mmol/L (3.5-5.1); SGOT/AST 34 IU/L (3-35); SGPT/ALT 26 U/L (12-78); SODIUM 144 mmol/L (136-145); TOTAL PROTEIN 5.8 gm/dL (6.4-8.2)
[2019-11-06 06:09] LABS: CPK 209 U/L (39-308)
--- NOTE | 2019-11-06 07:00 | NUR ---
ARRIVED ON SHIFT, RECEIVED REPORT FROM OFF GOING NURSE, ASSUMED CARE OF PATIENT.
[2019-11-06 07:10] LABS: ATYPICAL LYMPHS 4 % (0-0); BURR CELLS FEW; PLATELET SUFFICIENCY NORMAL (NORMAL); TOTAL CELLS COUNTED 100 #CELLS
--- NOTE | 2019-11-06 07:15 | NUR ---
Shift chart check completed.
--- NOTE | 2019-11-06 07:35 | NUR ---
INTRODUCED TO PATIENT, BED IN LOW POSITION WITH WHEEL LOCKS ENGAED, SIDE RAILS UP X 2, FOR TURNING AND REPOSITIONING, CALL LIGHT WITHIN REACH, NO NEEDS VOICED AT THIS TIME WHITE BOARD UPDATED.
[2019-11-06 07:40] LABS: ABG BASE EXCESS 6.6 mmol/L (-2.0-2.0); ARTERIAL BLOOD GAS PH 7.43 (7.35-7.45)
[2019-11-06 08:00] VITALS: BP 112/56
--- NOTE | 2019-11-06 08:59 | NUR ---
RECEIVED CALL FROM DR. DOAN, ORDERED RECEIVED FOR STAT CHEAT XRAY.
--- NOTE | 2019-11-06 09:00 | NUR ---
case management will notify [facility] when patient is medically stable for discharge
--- NOTE | 2019-11-06 10:00 | NUR ---
OT NOTE Occupational therapy orders received and chart reviewed. Spoke with nursing subassembly supervisor, Cyrus, this AM in regards to futher protocols for COVID19 patients and if patient was appropriate. At this time, awaiting further clarification from MD/nursing subassembly supervisor. Thank you. Carrie Mir, OTR/L
--- NOTE | 2019-11-06 11:00 | NUR ---
PATIENT GIVEN COMPLETE SPONGE BEATH, ABLE TO PARTICIPATE BY BATHING MARTIN AREA, LOTION APPLIED, CLEAN GOWN, AND NON-SKID SOCKS, PATIENT TOLERATED WELL O2 SATS REMAINED GREATER THAN 92% DURING ENTIRE PROCESS. COMPLETE LINEN CHANGE
[2019-11-06 12:00] VITALS: BP 142/54
--- NOTE | 2019-11-06 15:01 | NUR ---
PHYSICAL THERAPY Physical Therapy orders received and chart reviewed. Spoke with nursing supervisor laboratory, Cyrus, this AM in regards to futher protocols for COVID19 patients and if patient was appropriate. At this time, awaiting further clarification from MD/nursing supervisor laboratory. Thank you. Bebe June PT
[2019-11-06 16:00] VITALS: BP 126/65
[2019-11-06 20:00] VITALS: BP 136/49
--- NOTE | 2019-11-06 20:00 | NUR ---
PATIENT VOICED NO COMPLAINTS AT THIS TIME. RESTING COMFORTABLY IN CHAIR. RESP ARE ERND ON 3L NC HIGH-FLOW. GOMEZ CATHETER SECURED TO LEG, PATENT FOR TIAGO URINE WITH LIGHT SEDIMENT. CALL LIGHT LEFT WITHIN REACH.
--- NOTE | 2019-11-06 20:14 | NUR ---
PATIENT MEDICATED WITH RESTORIL FOR C/O INSOMNIA. WILL MONITOR
--- NOTE | 2019-11-06 20:40 | NUR ---
PATIENT MEDIATEDW ITH ZOAN FOR C/O NAUSEA. WILL MONITOR
--- NOTE | 2019-11-06 21:04 | NUR ---
RESTORIL APPEARS EFFECTIVE. NO DISTRESS NOTED. CALL LIGHT WITHIN REACH
--- NOTE | 2019-11-06 21:40 | NUR ---
ZOFRAN APPEARS EFFECTIVE. NO OVERT DISTRESS NOTED. CALL LIGHT LEFT WITHIN REACH
[2019-11-07] VITALS: BP 104/49
[2019-11-07 06:17] LABS: HEMATOCRIT 40.4 % (42.0-52.0); MEAN CELL VOLUME 93.1 fl (80.0-94.0); MEAN CORPUSCULAR HGB 30.4 pg (27.0-31.0); MEAN CORPUSCULAR HGB CONC 32.7 g/dl (33.0-37.0); MEAN PLATELET VOLUME 9.5 fl (9.6-12.3); PLATELET COUNT AUTOMATED 161 10*3/uL (130-400); RED BLOOD COUNT 4.34 10*6/uL (4.50-5.90); RED CELL DISTRI WIDTH 13.1 % (0-14.5); WHITE BLOOD COUNT 2.6 10*3/uL (4.8-10.8)
[2019-11-07 06:22] LABS: ALBUMIN 2.6 gm/dl (3.1-4.5); ALKALINE PHOSPHATASE 32 U/L (45-117); BUN 17 mg/dl (7-24); CHLORIDE 106 mmol/L (98-107); CREATININE 1.07 mg/dL (0.70-1.30); LDH 199 U/L (87-241); POTASSIUM 3.6 mmol/L (3.5-5.1); SGOT/AST 36 IU/L (3-35); SGPT/ALT 31 U/L (12-78); SODIUM 142 mmol/L (136-145); TOTAL PROTEIN 5.7 gm/dL (6.4-8.2)
[2019-11-07 06:35] LABS: CPK 98 U/L (39-308)
[2019-11-07 07:35] LABS: ATYPICAL LYMPHS 1 % (0-0); BASOPHILS 1 % (0-1); TOTAL CELLS COUNTED 100 #CELLS
[2019-11-07 07:36] LABS: PLATELET SUFFICIENCY NORMAL (NORMAL)
--- NOTE | 2019-11-07 07:57 | NUR ---
IN TO SEE PT.
[2019-11-07 08:00] VITALS: BP 121/50
[2019-11-07 08:40] LABS: ABG BASE EXCESS 7.8 mmol/L (-2.0-2.0); ARTERIAL BLOOD GAS PH 7.446 (7.35-7.45)
--- NOTE | 2019-11-07 09:09 | NUR ---
ZOFRAN GIVEN FOR C/O "UPSET STOMACH". WILL MONITOR. CALL LIGHT IN REACH.
--- NOTE | 2019-11-07 09:17 | NUR ---
GOMEZ CATH REMOVED PER ORDERS. TOLERATED FAIR. PT ALREADY FELT SENSATION TO VOID. EXTRA 15CC OUT. DARK TIAGO WITH LIGHT SEDIMENT/CLOUDY. WILL MONITOR. ALSO ASSISTED PT TO CHAIR AT THIS TIME. DID WELL, WEAKNESS WAS NOTED BUT PT DID MOST WORK BY HIMSELF WITH A SIDE ASSIST. STATES HE DOES NOT USE ANY ASSISTANCE DEVICE NORMALLY WHEN AMBULATING. CALL LIGHT IN REACH.
--- NOTE | 2019-11-07 09:36 | NUR ---
PER PT, ZOFRAN WAS EFFECTIVE. CALL LIGHT IN REACH. ISOLATION MAINTAINED.
--- NOTE | 2019-11-07 10:28 | NUR ---
PER - HANK PT WITH TELEMETRY CHARGES, DO NOT TRANSFER TO MED/SURG CHARGES. PT REQUIRES CONTINUOUS MONITORING.
--- NOTE | 2019-11-07 10:34 | NUR ---
IN TO SEE PT. NEW ORDERS REC'D FOR 40 IV LASIX, 40 KDUR CXR IN AM, REPEAT ABGs.
--- NOTE | 2019-11-07 10:54 | NUR ---
IN TO SEE PT.
[2019-11-07 10:57] LABS: ABG BASE EXCESS 6.4 mmol/L (-2.0-2.0); ARTERIAL BLOOD GAS PH 7.449 (7.35-7.45)
[2019-11-07 12:00] VITALS: BP 129/66
--- NOTE | 2019-11-07 15:00 | NUR ---
ZOFRAN GIVEN FOR C/O "UPSET STOMACH" WILL MONITOR.
--- NOTE | 2019-11-07 15:26 | NUR ---
PT/OT IN TO ASSESS PT.
--- NOTE | 2019-11-07 15:45 | NUR ---
Occupational Therapy evaluation completed on four with full evaluation to follow. Recommend occupational therapy per plan of care and SNF upon discharge. However, patient would like to return home with HH and assist from his girlfriend. Thank you for this referral. Carrie Mir OTR/L
--- NOTE | 2019-11-07 15:49 | NUR ---
PER PT, ZOFRAN WAS EFFECTIVE. CALL LIGHT IN REACH.
[2019-11-07 16:00] VITALS: BP 116/52
--- NOTE | 2019-11-07 16:36 | NUR ---
Physical Therapy evaluation completed on 5th floor with full evaluation to follow. Recommend physical therapy per plan of care and would benefit from SNF upon discharge however pt prefers to go home w girlfriend and HH. Thank you for this referral. Bebe June PT
--- NOTE | 2019-11-07 17:32 | NUR ---
C/O UPSET STOMACH "DUE TO ALL THE ANTIBIOTICS." LAST ZOFRAN GIVEN AT 1500. UNABLE TO GIVE MORE AT THIS TIME. NOTIFIED. SAID SHE WOULD PUT ORDERS IN.
[2019-11-07 17:39] LABS: ABG BASE EXCESS 9.8 mmol/L (-2.0-2.0); ARTERIAL BLOOD GAS PH 7.467 (7.35-7.45)
--- NOTE | 2019-11-07 17:43 | NUR ---
CALLED WITH NEW BLOOD GAS. NO CHANGE TO CURRENT ORDERS. PT REMAINS ON 5L NC.
[2019-11-07 20:00] VITALS: BP 134/62
--- NOTE | 2019-11-07 20:48 | NUR ---
PATIENT MEDICATED WITH RESTORIL FOR C/O INSOMNIA. WILL MONITOR
--- NOTE | 2019-11-07 21:10 | NUR ---
PATIENT HAD NO COMPLAINTS OTHER THAN HE WAS HAVING SEVERE GAS ALL DAY THAT ENABLED HIM TO EAT PROPERLY. NO OVERT DISTRESS NOTED, BSX4 NORMO. PATIENT STATED HE HAD SMALL BOWEL MOVEMENT TODAY. DENIES N/V/D. RESP ARE ERND ON 5L NC. INFORMED THAT DOCTOR WILL BE CALL TO GET SOMETHING FOR GAS. PATIENT SITTING UP IN CHAIR, CALL LIGHT WITHIN REACH
--- NOTE | 2019-11-07 21:22 | NUR ---
CALLED AND INFORMED THAT PATIENT HAS BEEN HAVING SEVERE GAS PAIN. STATED OK TO PLACE PRN ORDER FOR SIMETHICONE
--- NOTE | 2019-11-07 22:20 | NUR ---
PATIENT MEDICATED WITH SIMETHICONE FOR C/O GAS. WILL MONITOR
[2019-11-08] VITALS: BP 114/63
--- NOTE | 2019-11-08 04:00 | NUR ---
NO DISTRESS NOTED. PATIENT RESTING QUIETLY IN BED, EYES CLOSED. CALL LIGHT WITHIN REACH
[2019-11-08 06:21] LABS: BASO % 0.3 % (0.0-1.0); EOS # 0.3 10*3/uL (0.0-0.4); EOS % 7.9 % (1.0-4.0); HEMATOCRIT 42.7 % (42.0-52.0); LYMPH # 1.2 10*3/uL (1.3-4.4); LYMPH % 34.5 % (27.0-41.0); MEAN CORPUSCULAR HGB CONC 33.7 g/dl (33.0-37.0); MEAN PLATELET VOLUME 9.7 fl (9.6-12.3); MONO # 0.4 10*3/uL (0.1-1.0); MONO % 10.7 % (3.0-9.0); NEUT # 1.6 10*3/uL (2.3-7.9); NEUT % 45.8 % (47.0-73.0); PLATELET COUNT AUTOMATED 190 10*3/uL (130-400); RED BLOOD COUNT 4.64 10*6/uL (4.50-5.90); WHITE BLOOD COUNT 3.5 10*3/uL (4.8-10.8)
[2019-11-08 06:44] LABS: ALBUMIN 2.9 gm/dl (3.1-4.5); BUN 19 mg/dl (7-24); CHLORIDE 102 mmol/L (98-107); CREATININE 1.32 mg/dL (0.70-1.30); POTASSIUM 3.6 mmol/L (3.5-5.1); SGOT/AST 40 IU/L (3-35); SGPT/ALT 38 U/L (12-78); SODIUM 141 mmol/L (136-145)
[2019-11-08 06:47] LABS: ALKALINE PHOSPHATASE 29 U/L (45-117); LDH 193 U/L (87-241); TOTAL PROTEIN 6.2 gm/dL (6.4-8.2)
[2019-11-08 06:48] LABS: CPK 59 U/L (39-308)
[2019-11-08 08:00] VITALS: BP 133/65
[2019-11-08 08:01] LABS: ABG BASE EXCESS 9.2 mmol/L (-2.0-2.0); ARTERIAL BLOOD GAS PH 7.488 (7.35-7.45)
--- NOTE | 2019-11-08 08:12 | NUR ---
PATIENT MEDICATED FOR C/O NAUSEA/GAS. ZOFRAN GIVEN PER DRS ORDERS. PATIENT STATES THAT ZOFRAN DOESNT WORK, RN ENCOURAGED PATIENT TO GIVE ZOFRAN A CHANCE TO WORK AND IF NOT EFFECTIVE, RN WILL INFORM PATIENT VERBALIZED UNDERSTANDING. RN WILL CONTINUE TO MONITOR
--- NOTE | 2019-11-08 09:00 | NUR ---
patient will return home when medically stable and have [facility], case management will follow
--- NOTE | 2019-11-08 11:23 | NUR ---
RN CALLED INTO PATIENTS ROOM, PATIENT REQUESTING TO AMBULATE INTO THE BATHROOM. EXTENSION TUBING APPLIED TO PROVIDE PATIENT WITH OXYGEN WHILE AMBULATING. PATIENT TOLERATED AMBULATING WELL. PULSE OXIMETRY REMAINED ABOVE 94% ON THE 5LNC. RN PROVIDED PATIENT WITH FRESH ICE WATER AND ALSO HELPED PATIENT GET SAT UP IN THE CHAIR AT THE BEDSIDE. RN WILL CONTINUE TO MONITOR
[2019-11-08 12:00] VITALS: BP 128/65
--- NOTE | 2019-11-08 12:30 | NUR ---
PHYSICAL THERAPY Pt seen for treatment, spoke with nursing prior to activity and ok to see. Pt reports sleeping better last night, no c/o pain, feels his breathing is "a little better". Currently on 5L oxygen nasal canula, currenlty up in recliner chair sitting upright long 02 tubing intact. STS cg-min assist x 1 from recliner. Amb to BR 1 x 6 ft no AD cga to light min for mild unsteadiness/safety. After using BR performed STS from commode with Min assist x 1. Amb 1 x 20-25 ft after using restroom cg-min assist x 1 no AD back to recliner chair. Sats stable 94-95% at rest and 92% during ambulation activity RR 16 at baseline 20-22 with activity. OT working with patient after use of bathroom and ambulation activity. Per pt he was not up to any further activity at this time and was set up with his lunch. Did bring in fww to room to use however pt not wanting to use at this time, did discuss educate pt on benefits of improved balance and endurance pt did voice understanding. Nursing updated on activity after exiting room. Tolerated activity well with rest pds t/o and between PT and OT activities per pt cont to plan on discharge to home. Will cont therapy per POC airborne precautions maintained t/o. Bebe June PT
--- NOTE | 2019-11-08 12:32 | NUR ---
OT NOTE Patient was seen this date for occupational therapy treatment to maximize safety and independence with ADLs, transfers, and functional mobility. Patient seated in chair upon arrival and was agreeable to OT treatment. Physical therapist present for observation only. Patient seated at rest was on 5LO2, was 94-95% SpO2 at rest. Patient was 5LO2 NC throughout treatment. Patient seated donned a back gown with Min A d/t pulse ox/lines on the LUE. Patient completed a functional sit/stand from the chair with CGA, mobility into bathroom. Patient in bathroom required mod cues for safety navigating to the toilet. Performed toilet transfer with Min A due to being a lower surface. Patient then performed mobility with the PT. Patient provided with a RB. Patient seated in the chair donned/doff socks. Patient educated on tailor sit for EC/WS. Patient doffed B/L socks with supervision however required Min A over toes with encouragement to complete task. Patient provided with RB in between socks due to SOB. Following socks, patient SpO2 dropped to 91% and returned to 93-94% within 30 seconds. Patient completed a final sit/stand from the chair with CGA to remove back covering gown. Patient fatigued and requesting to be done for the day. Patient then required set-up assist for lunch, assist with opening crackers "cause it's hard to do this with all the lines." Seated at rest eating lunch, patient SpO2 was 94% on 5LO2. Patient seated in the chair, all needs within reach, call truong and urinal within reach. Will continue with POC as able. Thank you. Carrie Mir, OTR/L
[2019-11-08 16:00] VITALS: BP 115/86
[2019-11-08 20:00] VITALS: BP 128/50
--- NOTE | 2019-11-08 20:00 | NUR ---
PT SITTING UP IN CHAIR WATCHING TV.A&OX3, PLEASANT AND COOPOERATIVE WITH STAFF. RESP NONLABORED. NO ACUTE DISTRESS NOTED. NO COMPLAINTS VOICED. HEPLOCK PATENT. DENIES ANY PAIN OR DISCOMFORT.
[2019-11-09] VITALS: BP 125/44
--- NOTE | 2019-11-09 05:25 | NUR ---
MEDICATED WITH ZOFRAN PER PRN ORDER FOR C/O NAUSEA.
[2019-11-09 05:55] LABS: BASO % 0.2 % (0.0-1.0); EOS # 0.3 10*3/uL (0.0-0.4); EOS % 6.5 % (1.0-4.0); HEMATOCRIT 42.7 % (42.0-52.0); LYMPH # 1.1 10*3/uL (1.3-4.4); LYMPH % 26.1 % (27.0-41.0); MEAN CELL VOLUME 91.6 fl (80.0-94.0); MEAN CORPUSCULAR HGB 30.5 pg (27.0-31.0); MEAN CORPUSCULAR HGB CONC 33.3 g/dl (33.0-37.0); MEAN PLATELET VOLUME 9.7 fl (9.6-12.3); MONO # 0.4 10*3/uL (0.1-1.0); MONO % 9.5 % (3.0-9.0); NEUT # 2.5 10*3/uL (2.3-7.9); NEUT % 56.8 % (47.0-73.0); PLATELET COUNT AUTOMATED 199 10*3/uL (130-400); RED BLOOD COUNT 4.66 10*6/uL (4.50-5.90); WHITE BLOOD COUNT 4.3 10*3/uL (4.8-10.8)
[2019-11-09 06:25] LABS: ALBUMIN 2.9 gm/dl (3.1-4.5); BUN 19 mg/dl (7-24); CHLORIDE 103 mmol/L (98-107); CREATININE 1.25 mg/dL (0.70-1.30); POTASSIUM 3.6 mmol/L (3.5-5.1); SGOT/AST 62 IU/L (3-35); SGPT/ALT 55 U/L (12-78); SODIUM 139 mmol/L (136-145); TOTAL PROTEIN 6.3 gm/dL (6.4-8.2)
[2019-11-09 06:27] LABS: ALKALINE PHOSPHATASE 36 U/L (45-117); LDH 187 U/L (87-241)
[2019-11-09 06:28] LABS: CPK 41 U/L (39-308)
[2019-11-09 08:00] VITALS: BP 130/66
[2019-11-09 08:47] LABS: ABG BASE EXCESS 6.4 mmol/L (-2.0-2.0); ARTERIAL BLOOD GAS PH 7.452 (7.35-7.45)
--- NOTE | 2019-11-09 09:14 | NUR ---
PATIENT C/O NAUSEA AND CONSTIPATION. PATIENT GIVEN DULCOLAX AND ZOFRAN PER REQUEST. WILL MONITOR.
--- NOTE | 2019-11-09 10:02 | NUR ---
DR. DOAN IN TO SEE PATIENT AND ASSESS. PATIENT CONDITION REVIEWED AND NEW ORDERS RECEIVED.
[2019-11-09 12:00] VITALS: BP 123/68
--- NOTE | 2019-11-09 14:00 | NUR ---
PHYSICAL THERAPY Spoke with nsg pt ok for activity, received lunch late pt still eating. Presently no c/o SOB pt on 5 L regular NC oxygen level 92-93% Pt c/o mild nausea "stomach pain" pt states he did move his bowels 1-2 days ago. Contacted nsg reg stomach/nausea however pt unable to have zofran for another hour. Pt agreeable to activity performed STS Cg-Min assist x 1 x 2 attempts First stand no AD Cg x 2 stood for approx 45 seconds focused on balance and paced pursed lip breathing with inspiration chest expansion however stating "stomach hurting" returned to seated position. After 45 second rest performed second STS Cg-min x 1 to straighten out sheet on chair and gown sitting back down stood 15 seconds CG x 2. Postioned pt for comfort tray table in place call truong in reach. 0xygen levels 91% with standing activity but back to 92% in sitting position. Deferred further activity secondary to stomach pains and mild nausea. Cont per POC, airborne precautions, cont to recomend SNF at discharge. Bebe June PT
--- NOTE | 2019-11-09 14:02 | NUR ---
OT NOTE Patient was seen this date for occupational therapy treatment to maximize safety and independence with ADLs, transfers, and functional mobility. Prior to entering room, nursing gave approval to see patient, stating he was just set-up for lunch, but the nurse instructed the patient therapy would be in soon. PT present for observation only. Patient seated in the chair upon arrival and was agreeable to treatment. Patient reporting he was nauseaous, hit call truong for nurse. Nursing assessed in room stating she would give meds in an hour. At rest, patient was 92-93% SpO2 on 5L NC, RR 16-20. Patient minimally impulsive to stand, educated on safety and being aware of fall risks (removing sheet underneath his feet) prior to movement. Patient completed a functional sit/stand from the chair with CGA assist, SpO2 dropped to 91% on 5L, increased to 92-93% within 20 seconds. While in stance, patient educated on pursed lip breathing and relaxation techniques. Patient stood for 45 seconds prior to needing to sit due to fatigue and "stomach is getting worse." Patient seated provided with RB and washed face with set-up assist. OTR offered seated exercises to complete and patient further declined stating "I just can't do this today." Patient completed one final functional sit/stand with Min A-CGA and stood for <25 seconds. Patient set-up with his meal and educated on value of upright positioning when eating, provided pillow for behind back. Patient set-up with lunch, all needs within reach including call truong. Patient would benefit from continued OT treatment, continue with POC as able, rec d/c to SNF. Thank you. Carrie Mir, OTR/L
--- NOTE | 2019-11-09 15:00 | NUR ---
TOOK OVER CARE OF PT AT THIS TIME. PT SITTING UP IN CHAIR. ALERT ORIENTED AND PLEASANT. RESPIRATIONS EASY AND UNLABORED ON 5L NC. NO COMPLAINTS VOICED AT THIS TIME. CALL LIGHT IN REACH.
--- NOTE | 2019-11-09 15:50 | NUR ---
PT GIVEN ZOFRAN VIA IV AT THIS TIME FOR C/O NAUSEA. WILL MONITOR FOR EFFECTIVENESS. CALL LIGHT IN REACH.
[2019-11-09 16:00] VITALS: BP 143/74
--- NOTE | 2019-11-09 16:50 | NUR ---
ZOFRAN EFFECTIVE AT THIS TIME.
--- NOTE | 2019-11-09 18:00 | NUR ---
PT RESTING IN BED. RESPIRATIONS UNLABORED ON 5L NC. NO S/S OF DISTRESS NOTED. ALL SAFETY MEASURES IN PLACE. CALL LIGHT IN REACH.
--- NOTE | 2019-11-09 19:45 | NUR ---
PATIENT IS AAOX3 BREATHING WITH EASY AND REGULAR RESPERS ON 5L O2 VIA NC. ASSESSMENT IS COMPLETE WITH NO C/O OR S/S OF DISTRESS NOTED AT THIS TIME. VITALS OBTAINED. BED IS LOW, LOCKED, AND CALL LIGHT IS WITHIN REACH. WILL CONTINUE TO MONITOR, SEE INTERVENTION SCREEN.
[2019-11-09 20:00] VITALS: BP 142/73
--- NOTE | 2019-11-09 21:55 | NUR ---
IV started left hand with #22 angiocath after 1 attempts. The IV site was prepped with Chloraprep. Heparin lock attached. Sterile dressing applied. Patient tolerated precedure well. Procedure performed according to [facility] policy & procedure. PRN ZOFRAN GIVEN AT THIS TIME FOR C/O NAUSEA. CALL LIGHT IS WITHIN REACH, WILL MONITOR EFFECT. MIRANDA MERCADO
--- NOTE | 2019-11-09 22:55 | NUR ---
PRN ZOFRAN EFFECTIVE PER PATIENT. CALL LIGHT IS WITHIN REACH.
[2019-11-10] VITALS: BP 125/54
--- NOTE | 2019-11-10 00:30 | NUR ---
PATIENT MOVED FROM 420-1 TO 421-1 WITH ALL BELONGINGS. PATIENT TOLERATED WELL, BED IS LOW, LOCKED, AND CALL LIGHT IS WITHIN REACH.
[2019-11-10 06:08] LABS: BASO % 0.2 % (0.0-1.0); EOS # 0.4 10*3/uL (0.0-0.4); EOS % 7.1 % (1.0-4.0); HEMATOCRIT 44.8 % (42.0-52.0); LYMPH # 1.1 10*3/uL (1.3-4.4); LYMPH % 19.8 % (27.0-41.0); MEAN CELL VOLUME 92.2 fl (80.0-94.0); MEAN CORPUSCULAR HGB CONC 32.6 g/dl (33.0-37.0); MEAN PLATELET VOLUME 9.8 fl (9.6-12.3); MONO # 0.6 10*3/uL (0.1-1.0); MONO % 9.5 % (3.0-9.0); NEUT # 3.6 10*3/uL (2.3-7.9); NEUT % 62.2 % (47.0-73.0); PLATELET COUNT AUTOMATED 246 10*3/uL (130-400); RED BLOOD COUNT 4.86 10*6/uL (4.50-5.90); RED CELL DISTRI WIDTH 13.1 % (0-14.5); WHITE BLOOD COUNT 5.8 10*3/uL (4.8-10.8)
[2019-11-10 06:25] LABS: ALKALINE PHOSPHATASE 41 U/L (45-117); BUN 19 mg/dl (7-24); CHLORIDE 105 mmol/L (98-107); CREATININE 1.23 mg/dL (0.70-1.30); LDH 225 U/L (87-241); POTASSIUM 3.7 mmol/L (3.5-5.1); SGOT/AST 110 IU/L (3-35); SGPT/ALT 97 U/L (12-78); SODIUM 141 mmol/L (136-145); TOTAL PROTEIN 6.5 gm/dL (6.4-8.2)
--- NOTE | 2019-11-10 06:51 | NUR ---
24 HR chart check completed.
--- NOTE | 2019-11-10 07:10 | NUR ---
TOOK OVER CARE OF PT AT THIS TIME. PT RESTING IN BED. ALERT ORIENTED AND PLEASANT MOOD. NO COMPLAINTS ARE VOICED. NO S/S OF DISTRESS AT THIS TIME. SUPPLEMENTAL OXYGEN IN PLACE VIA 5L NC. HOB ELEVATED. ALL SAFETY MEASURES IN PLACE. CALL LIGHT IN REACH.
[2019-11-10 08:00] VITALS: BP 112/47
--- NOTE | 2019-11-10 09:00 | NUR ---
case management speaks with patient regarding discharge plan and physical theapy recommendation of a short term [facility] prior to returning home, patient stated he felt that he could return home with home health but if needed he would like to be referred to [facility], and rehab suites. patient will also be referred to [facility]. case managment will follow
--- NOTE | 2019-11-10 09:33 | NUR ---
ASSISTANT THERAPY AIDE NOTIFIED OF THE PATIENT WANTING PLACEMENT. ASSISTANT THERAPY AIDE FAXED NEW REFERRAL TO [facility], SINCE THE PATIENT IS COVID POSITIVE.
--- NOTE | 2019-11-10 11:05 | NUR ---
case management received a message that [facility] will not accept patient due to him being covid positive, case management talks with patient regarding this, he stated he felt he could return home with [facility], case management will notify [facility] when patient is medically stable for discharge
--- NOTE | 2019-11-10 11:59 | NUR ---
PT GIVEN ZOFRAN AT THIS TIME FOR C/O NAUSEA. WILL MONITOR FOR EFFECTIVENESS. CALL LIGHT IN REACH.
--- NOTE | 2019-11-10 12:59 | NUR ---
ZOFRAN EFFECTIVE PER PT.
--- NOTE | 2019-11-10 14:00 | NUR ---
OT NOTE Patient participated in 20 minutes of 1:1 OT treatment to maximize safety and independence with ADLs, transfers, and functional mobility. Nursing gave approval to see patient. Patient was agreeable to OT treatment per phone call prior to OTR entering room. Patient seated in the recliner reported "some dizziness", which subsided with time. While seated, patient 93-94% SpO2 on 5L NC, HR 91-92 bpm. Patient seated performed UE 1x10 AROM exercises- shoulder flexion, chest press, and elbow flex/ext. Patient performed exercises unsupported in the chair to challenge his good static/dynamic seated balance. Patient provided with increased RB in between exercises and demonstrated good pursed lip breathing. Patient don/doffed socks with Min A over the toes, SpO2 91-92% and given RB. Patient requesting "get up and walk a bit", performed chair transfer and functional mobility with CGA to the sink where he stood approx 2 mins with CGA to wash face. Patient standing rested UE's on the sink due to fatigue, SpO2 decreased to 90%. Patient returned to chair for seated RB, SpO2 increasing to 92% within 1 minute. Patient asked to change front gown, completed with Min A due to heart monitor/pulse ox lines. At conclusion, patient was seated in recliner, all needs within reach, 92% SpO2 on 5L and HR 99-101 bpm. Patient stating he "I like to push myself...I think I did a lot better today...That was really good." Patient would benefit from continued OT treatment to maximize safety and independence with ADLs. Continue with POC as able. Carrie Mir, OTR/L
--- NOTE | 2019-11-10 14:10 | NUR ---
PHYSICAL THERAPY Spoke with nsg prior to activity and ok for therapy at this time. Upon entering room pt sitting up in recliner chair on 5L 02 NC no complaints Performed/ed on diaphramatic breathinng with pursed lip performed for 1 minute while reclined in chair. Sitting upright in recliner with back support performed 2 x 5 reps AP and LAQ's BLE. Sitting unsupported in chair for 1 minute with single arm support focused on posture with shld retraction. Pt requiring rest break 1 minute btwn activities due to fatigue. STS cga x 1 from recliner chair. Ambulated 20 ft x 1 without AD cg-min assist x 1 for balance/safety pt did not want to use AD or hold light touch at PT's hand. Per pt was not up to ambulating a second time after being seated/resting Remained OOB at end of session up in recliner chair with call truong/phone. 02 levels 92-93% pre and post activity. Nsg in at end of session for meds and discussed that earlier pt choking when drinking his water of which he then did when nsg in room. Per pt he has had issue with drinking whether through a straw or regular cup for "awhile" per pt he thinks he drinks too quickly or tries to take too large of a sip. Recomended Speech eval/screen for safety and per nsg will discuss with MD. Improved activity level today and participation, no c/o nausea or abdominal pain pre or post activity. Continue per CASSANDRA June PT
[2019-11-10 16:00] VITALS: BP 119/58
--- NOTE | 2019-11-10 17:55 | NUR ---
PT GIVEN ZOFRAN AT THIS TIME FOR C/O NAUSEA. WILL MONITOR FOR EFFECTIVENESS. CALL LIGHT IN REACH.
--- NOTE | 2019-11-10 18:55 | NUR ---
ZOFRAN EFFECTIVE PER PT.
[2019-11-10 20:00] VITALS: BP 125/51
--- NOTE | 2019-11-10 20:20 | NUR ---
PATIENT IS AAOX3 BREATHING WITH EASY AND REGULAR RESPERS ON 5L O2 VIA NC, TITRATED TO 4L NC. ASSESSMENT IS COMPLETE WITH NO C/O OR S/S OF DISTRESS NOTED AT THIS TIME. VITALS OBTAINED. BED IS LOW, LOCKED, AND CALL LIGHT IS WITHIN REACH. WILL CONTINUE TO MONITOR, SEE INTERVENTION SCREEN.
--- NOTE | 2019-11-10 22:54 | NUR ---
PRN RESTORIL AND ZOFRAN GIVEN FOR C/O INSOMNIA AND NAUSEA. PATIENT ASSISTED TO BED WELL. BED IS LOW, LOCKED, AND CALL LIGHT IS WITHIN REACH, WILL MONITOR EFFECT.
--- NOTE | 2019-11-10 23:54 | NUR ---
PRN RESTORIL AND ZOFRAN EFFECTIVE. CALL LIGHT IS WITHIN REACH.
[2019-11-11] VITALS: BP 123/42
--- NOTE | 2019-11-11 00:32 | NUR ---
ATTEMPTED TO TITRATE OX, PATIENT ON 4L O2 VIA NC, PULSE OX KEPT DROPPING TO 88%. PATIENT BACK ON 5L O2 VIA NC. PULSE OX 93%.
--- NOTE | 2019-11-11 04:00 | NUR ---
IV started right forearm with #22 angiocath after 1 attempts. The IV site was prepped with Chloraprep. Heparin lock attached. Sterile dressing applied. Patient tolerated precedure well. Procedure performed according to [facility] policy & procedure. Hep Lock discontinued. Site asymptomatic. Pressure applied. Sterile dressing applied. MIRANDA MERCADO
[2019-11-11 06:24] LABS: BASO % 0.5 % (0.0-1.0); EOS # 0.5 10*3/uL (0.0-0.4); EOS % 8.3 % (1.0-4.0); HEMATOCRIT 41.6 % (42.0-52.0); LYMPH # 1.3 10*3/uL (1.3-4.4); LYMPH % 23.4 % (27.0-41.0); MEAN CELL VOLUME 93.7 fl (80.0-94.0); MEAN CORPUSCULAR HGB 30.9 pg (27.0-31.0); MEAN CORPUSCULAR HGB CONC 32.9 g/dl (33.0-37.0); MEAN PLATELET VOLUME 9.7 fl (9.6-12.3); MONO # 0.6 10*3/uL (0.1-1.0); MONO % 10.5 % (3.0-9.0); NEUT # 3.1 10*3/uL (2.3-7.9); NEUT % 55.7 % (47.0-73.0); PLATELET COUNT AUTOMATED 250 10*3/uL (130-400); RED BLOOD COUNT 4.44 10*6/uL (4.50-5.90); RED CELL DISTRI WIDTH 13.3 % (0-14.5); WHITE BLOOD COUNT 5.5 10*3/uL (4.8-10.8)
[2019-11-11 06:52] LABS: ALKALINE PHOSPHATASE 38 U/L (45-117); BUN 18 mg/dl (7-24); CHLORIDE 107 mmol/L (98-107); CPK 27 U/L (39-308); CREATININE 1.18 mg/dL (0.70-1.30); LDH 176 U/L (87-241); POTASSIUM 3.5 mmol/L (3.5-5.1); SGOT/AST 96 IU/L (3-35); SGPT/ALT 106 U/L (12-78); SODIUM 143 mmol/L (136-145)
--- NOTE | 2019-11-11 07:44 | NUR ---
TOOK OVER CARE OF PT AT THIS TIME. PT SITTING UP IN CHAIR. EATING BREAKFAST. VITALS OBTAINED AND WNL. ASSESSMENT COMPLETE. PT HAS NO COMPLAINTS AT THIS TIME. RESPIRATIONS EASY AND UNLABORED ON 5L, POX 93% SAFETY MEASURES IN PLACE. CALL LIGHT IN REACH
[2019-11-11 08:00] VITALS: BP 114/68
--- NOTE | 2019-11-11 10:30 | NUR ---
AM MEDICATIONS GIVEN AT THIS TIME. PT IV SITE TO RIGHT WRIST IS PATENT. FLUSHING AND GIVING ADEQUATE BLOOD RETURN. IV ATB CONNECTED AT THIS TIME. PT VOICES NO COMPLAINTS. RESPIRATIONS UNLABORED. PT CONTINUES TO SIT IN CHAIR BESIDE BED. WILL CONTINUE TO MONITOR. CALL LIGHT IN REACH.
[2019-11-11 11:42] VITALS: BP 136/60
--- NOTE | 2019-11-11 12:48 | NUR ---
REPORT GIVEN TO DR DOAN. VERBAL ORDERS RECEIVED TO ORDER PT SOLUMEDROL 40 MG BID. GIVE FIRST DOSAGE NOW. WILL PLACE APPROPRIATE ORDERS AND MEDICATE PT WHEN AVAILABLE TO PULL. WILL UPDATE PT ON MEDS.
[2019-11-11 16:00] VITALS: BP 118/50
--- NOTE | 2019-11-11 18:40 | NUR ---
PT TAKEN DOWN TO CT FOR CTA OF CHEST.
--- NOTE | 2019-11-11 19:10 | NUR ---
PT RETURNS TO ROOM FROM CTA. PT PLACED BACK ON 5L NC IN ROOM. PT SITTING UP IN CHAIR EATING DINNER AT THIS TIME.
--- NOTE | 2019-11-11 19:46 | NUR ---
24 HR chart check completed.
[2019-11-11 20:00] VITALS: BP 124/51
--- NOTE | 2019-11-11 21:08 | NUR ---
PATIENT IS AAOX3 RESTING IN CHAIR WITH EASY AND REGULAR RESPERS ON 5L O2 VIA NC. ASSESSMENT IS COMPLETE WITH NO C/O OR S/S OF DISTRESS NOTED AT THIS TIME. VITALS OBTAINED. CALL LIGHT IS WITHIN REACH. WILL CONTINUE TO MONITOR, SEE INTERVENTIONS.
--- NOTE | 2019-11-11 22:28 | NUR ---
PRN RESTORIL AND ZOFRAN PROVIDED FOR C/O INSOMNIA AND NAUSEA. PATIENT BATHED AND ASSISTED INTO BED. BED IS LOW, LOCKED, AND CALL LIGHT IS WITHIN REACH. WILL CONTINUE TO MONITOR.
--- NOTE | 2019-11-11 23:28 | NUR ---
PRN RESTORIL AND ZOFRAN EFFECTIVE. PATIENT IS SLEEPING. CALL LIGHT IS WITHIN REACH.
[2019-11-12] VITALS: BP 124/55
[2019-11-12 06:42] LABS: CPK 23 U/L (39-308); LDH 154 U/L (87-241)
--- NOTE | 2019-11-12 07:00 | NUR ---
ARRIVED ON SHIFT, REPORT RECEIVED FROM OFFGOING NURSE, ASSUMED CARE OF PATIENT.
--- NOTE | 2019-11-12 07:20 | NUR ---
INTRODUCED SELF TO PATIENT, BED IN LOW POSITION, WHEEL LOCKS ENGAGED, CALL LIGHT WITHIN REACH, SIDE RAILS UP X 2 FOR TURNING AND REPOSITIONING, NO NEEDS VOICED AT THIS TIME, WHITE BOARD UPDATED.
[2019-11-12 08:00] VITALS: BP 120/66; BP 92/55
--- NOTE | 2019-11-12 09:05 | NUR ---
Shift chart check completed.
[2019-11-12 09:32] LABS: ABG BASE EXCESS 2.2 mmol/L (-2.0-2.0); ARTERIAL BLOOD GAS PH 7.415 (7.35-7.45)
[2019-11-12 12:00] VITALS: BP 126/51
--- NOTE | 2019-11-12 14:09 | NUR ---
DR. TOTH TO SEE PATIENT, ADVISED OF + URINE OF 960, ORDER RECEIVED FOR BLADDER SCAN, BLADDER SCAN REVIELED 180CC URINE AFTER VOID OF 100, SPOKE WITH DR. DOAN ADVISED OF THE ABOVE RESULTS, HE ORDERED, FLOMAX, ADVISED HE WAS ALREADY ON FLOMAX. NO OTHER ORDERS AT THIS TIME.
[2019-11-12 16:00] VITALS: BP 134/50
--- NOTE | 2019-11-12 16:00 | NUR ---
RECEIVED CALL FROM CROP OR GRAIN FARMWORKER ADVISED PATIENT HAD DESATED TO 88, WENT IN ROOM TO CHECK PATIENT HE DENIES FEELING SHORT OF BREATH AND STATES HE FEELS SOME BETTER THIS EVENING. CALL PLACED TO RESP. SPOKE TO JUDITH ADVISED OF O2 SATS, SHE VERSED SHE WILL BE UP.
--- NOTE | 2019-11-12 17:49 | NUR ---
12:00 PT INSTRUCTED ON USE OF INCENTIVE SPIROMETER. PT DEMONSTRATED PROPER TECHNIQUE. PT INSTRUCTED TO USE Q 2 HR W/A.
[2019-11-12 20:00] VITALS: BP 131/54
--- NOTE | 2019-11-12 20:50 | NUR ---
PT SITTING UP IN CHAIR. RESP-EASY AND REGULAR AT THIS TIME. USING URINAL WITH 100CC OUT. ECCYMOTIC AREAS TO ARMS. TOLERATED ROUTINE MED WITH NO PROBLEM. CALL LIGHT IN REACH. SEE SHIFT ASSESSMENT.
--- NOTE | 2019-11-12 22:05 | NUR ---
RESTORIL GIVEN PER PATIENT REQUEST. WILL ASSESS EFFECTIVENESS.
[2019-11-13] VITALS: BP 126/50
--- NOTE | 2019-11-13 00:10 | NUR ---
PT RESTING IN BED WITH EYES CLOSED. AWAKENS EASILY. NO C/O AT THIS TIME. CALL LIGHT IN REACH. SEE SHIFT ASSESSMENT.
--- NOTE | 2019-11-13 04:00 | NUR ---
PT SLEEPING IN BED. RESP-EASY AND REGULAR. CALL LIGHT IN REACH.
--- NOTE | 2019-11-13 05:30 | NUR ---
SITTING UP AT SIDE OF BED. OXYGEN IN USE. TOLERATED ROUTINE MED WITH NO PROBLEM. NO C/O AT THIS TIME. PT WAS UP TO PEE IN URINAL, PULSE OX 85-89% ON 5LITERS. AFTER SITTING UP TO 93% 5 LITERS. PT SOB WITH EXERTION. CALL LIGHT IN REACH.
[2019-11-13 05:46] LABS: CPK 21 U/L (39-308); LDH 155 U/L (87-241)
--- NOTE | 2019-11-13 07:00 | NUR ---
ARRIVED ON SHIFT, REPORT RECEIVED FROM OFF GOING NURSE, ASSUMED CARE OF PATIENT.
--- NOTE | 2019-11-13 07:15 | NUR ---
INTRODUCED SELF TO PATIENT, BED IN LOW POSITION, WHEEL LOCKS ENGAED, SIDERAILS UP X 2 FOR TURNING AND REPOSITIONING, CALL LIGHT WITHIN REACH, NO NEEDS VOICED AT THIS TIME. WHITE BOARD UPDATED.
[2019-11-13 08:00] VITALS: BP 130/60
--- NOTE | 2019-11-13 09:45 | NUR ---
DR. THOMPSON UP TO SEE PATIENT, SHE GAVE VERBAL ORDER FOR A REPEAT COVID TEST, CALL PLACED TO LAB REQUESTED SWAB QUIT.
--- NOTE | 2019-11-13 09:54 | NUR ---
PATIENT C/O FEELING NAUSEATED, MEDICATED WITH ZOFRAN ORDERED.
--- NOTE | 2019-11-13 10:30 | NUR ---
PATIENT VERSED THAT HE WOULD LIKE TO GO [facility] UPON DISCHARGE, NOTIFIED GREGG IN CASE MANAGEMENT OF PATIENTS CHOICE.
--- NOTE | 2019-11-13 10:30 | NUR ---
case management received a call from patient's nurse that doctor recommended he go to a short term skilled for rehab and 24 hour care, patient's nurse stated patient requested [facility] and PCR for covid was repeated. high school social studies tutor will refer [facility], case management will follow
--- NOTE | 2019-11-13 10:54 | NUR ---
PATIENT REPORTS GOOD EFFECT FROM ZOFRAN GIVEN X 1 HOUR AGO, HE DENIES ANY FURTHER NAUSEA.
--- NOTE | 2019-11-13 11:17 | NUR ---
CALL RECEIVED FROM MONITOR ROOM, PATIENT HAVING EPISODES OF DECREASED O2 SATS IN THE 80'S CALL PLACED TO [facility] TO CHECK ON PTS O2 STATUS, CURRENTLY ON 5L NC.
[2019-11-13 12:00] VITALS: BP 133/65
--- NOTE | 2019-11-13 12:49 | NUR ---
SUPERVISOR SELF SERVICE STORE SPOKE WITH [facility], PATIENT WILL NEED 2 NEGATIVE PCR TEST AND ACCEPTANCE. SUPERVISOR SELF SERVICE STORE SPOKE WITH [facility], PATIENT WILL NEED 2 NEGATIVE PCR TEST AND ACCEPTANCE. SUPERVISOR SELF SERVICE STORE SPOKE WITH [facility] THEY ARE NOT ACCEPTING COVID POSITIVE PATIENTS. SUPERVISOR SELF SERVICE STORE SPOKE WITH [facility], PEGGY MATHIS THEY ARE NOT ACCEPTING COVID POSITIVE PATIENTS, THEIR SISTER FACILITY, [facility] IN [place] CAN IF NEEDED. SUPERVISOR SELF SERVICE STORE HAS A MESSAGES OUT TO: [facility], [facility].. SUPERVISOR SELF SERVICE STORE REACHED OUT TO [facility], THEY ARE NOT ACCEPTING ANY OUTSIDE RESIDENTS AT THIS TIME.
--- NOTE | 2019-11-13 13:02 | NUR ---
[facility] IS ONLY ABLE TO ACCEPT THE PAITENT AT THEIR [place] LOCATION IN [facility], 2 HOURS AWAY. [facility] DENIED THE PATIENT, PATIENT WOULD HAVE TO GO TO [facility], WHICH HE DECLINED.
--- NOTE | 2019-11-13 13:07 | NUR ---
JEWEL SAWYER SPOKE WITH THE PATIENT VIA PHONE. JEWEL SAWYER EXPLAINED TO THE PATIENT ABOUT THE LOCAL FACILITIES NEEDS FOR NEGATIVE TESTING/NOT ACCEPTING. HE STATED HE WANTED TO TALK TO HIS .
[2019-11-13 14:01] LABS: BASO % 0.3 % (0.0-1.0); EOS % 0.5 % (1.0-4.0); HEMATOCRIT 41.8 % (42.0-52.0); LYMPH # 0.9 10*3/uL (1.3-4.4); LYMPH % 11.5 % (27.0-41.0); MEAN CELL VOLUME 96.3 fl (80.0-94.0); MEAN CORPUSCULAR HGB 31.1 pg (27.0-31.0); MEAN CORPUSCULAR HGB CONC 32.3 g/dl (33.0-37.0); MEAN PLATELET VOLUME 9.6 fl (9.6-12.3); MONO # 0.3 10*3/uL (0.1-1.0); MONO % 3.9 % (3.0-9.0); NEUT # 6.5 10*3/uL (2.3-7.9); NEUT % 81.4 % (47.0-73.0); PLATELET COUNT AUTOMATED 273 10*3/uL (130-400); RED BLOOD COUNT 4.34 10*6/uL (4.50-5.90); RED CELL DISTRI WIDTH 13.9 % (0-14.5); WHITE BLOOD COUNT 7.9 10*3/uL (4.8-10.8)
[2019-11-13 14:29] LABS: ALBUMIN 3.1 gm/dl (3.1-4.5); ALKALINE PHOSPHATASE 40 U/L (45-117); BUN 18 mg/dl (7-24); CHLORIDE 105 mmol/L (98-107); CREATININE 1.29 mg/dL (0.70-1.30); POTASSIUM 4.1 mmol/L (3.5-5.1); SGOT/AST 22 IU/L (3-35); SGPT/ALT 61 U/L (12-78); SODIUM 141 mmol/L (136-145); TOTAL PROTEIN 6.3 gm/dL (6.4-8.2)
[2019-11-13 14:57] LABS: CLARITY CLOUDY (CLEAR); COLOR YELLOW (YELLOW)
[2019-11-13 14:58] LABS: BACTERIA TRACE; BILIRUBIN NEGATIVE (NEGATIVE); BLOOD NEGATIVE (NEGATIVE); GLUCOSE NEGATIVE (NEGATIVE); KETONE NEGATIVE (NEGATIVE); LEUKO ESTERASE NEGATIVE (NEGATIVE); NITRITE NEGATIVE (NEGATIVE); PH 7.5 (5.0-9.0); SPECIFIC GRAVITY 1.015 (1.005-1.030); UROBILINOGEN 0.2 E.U./dl (0.2-1.0)
--- NOTE | 2019-11-13 15:15 | NUR ---
SURVEY INTERVIEWER ATTEMPTED TO REACH THE PATIENT VIA PHONE, IT WAS BUSY. SURVEY INTERVIEWER SCANNED AND EMAILED REFERRAL TO [facility] TO REVIEW.
--- NOTE | 2019-11-13 15:45 | NUR ---
OT NOTE Patient was seen this date for occupational therapy to maximize safety and independence with ADLs, transfers, and functional mobility. Nursing, Gabriela, gave approval to see patient this date. Patient was agreeable to OT treatment. Physical therapist present for observation only. Patient was on 5LO2 NC throughout OT treatment, beginning at 92% and 98-100 bpm at rest. Patient performed chair transfer with Min Ax1 with BURIAL VAULT MAKER presenting with an fair- dynamic balance. Patient seated EOB provided with edu on EC/WS with pursed lip breathing with fair carryover throughout treatment. Patient demonstrated bed mobility supine>sit and sit>supine with CGA, 91% SpO2. Patient provided with the WW and had good carryover of safe hand placement following edu for a functional sit/stand from EOB. Patient performed functional mobility in room with PT, SpO2 dropped to 89% and HR 110 bpm, provided with extended seated RB in recliner. Patient's SpO2 increased to 91-92% within 1 minute. While seated unsupported, patient completed a grooming task unsupported with set-up assist. Patient's dynamic standing balance was challenged by having patient reach into all planes with B/L UEs with fair+ balance. After approx. 3 minutes of standing, patient's SpO2 dropped to 89% and provided with a RB. Patient stating he was fatigued, which concluded his OT treatment, SpO2 91-92%. Patient seated in recliner, all needs within reach including the ice water he requested, and PT in room with patient. Patient would benefit from continued OT treatment to maximize independence, continue with POC recommend d/c to SNF. Carrie Mir, OTR/L
--- NOTE | 2019-11-13 15:45 | NUR ---
PHYSICAL THERAPY Spoke with nsg ok for activity. Pt up in recliner chair upon entering room No c/o pain continues to be on 5L 02 NC continuous pulse ox sats at rest 92% HR 98-100. STS from recliner Min assist x 1, SPT recliner to chair no AD Min ju x 1 pt demonstrating increased shuffling gait from last visit. Sit to supine and Supine to sit from bed cga x 1. Sat at EOB for 3-4 minutes with supervision focusing on pursed lip breathing performed 1 x 5 shoulder retractions with breathing. STS from bed Min assist x 1, Amb 1 x 22 ft with FWW CG-Min x1 second person SBA for 02 tubing sats dropping to 89% HR 110 returned to recliner chair. Sats improved to 90-91% in approx 1 minute. Pt rested for 2-3 minutes then performed STS/standing tolerance/balance with OT (refer to note) Pt returned to sitting rested another 5-10 minutes.PT waiting for water to be brought to room, pt requesting to use urinal and assisted w STS min x 1 to use urninal standing for another 1-2 minutes w Cg-min assist x 1 for standing balance prior to ending session. Pt's call truong, phone, urinal and tray table all within reach. Updated nsg on acitvity. End of session 02 levels 91-92% encouraged diaphramatic breathing technique. Pt continues to increase level of particpation with rest periods throughout Improved gait pattern with use of FWW. Continue per POC and cont to recommend SNF at discharge. Bebe June PT
[2019-11-13 16:00] VITALS: BP 132/60
--- NOTE | 2019-11-13 17:33 | NUR ---
PATIENT C/O OF NAUSEA MEDICATED WITH ZOFRAN ORDERED IV, HE FELT WARM TO TOUCH VS TAKEN T 1O1.3
--- NOTE | 2019-11-13 17:34 | NUR ---
PATIENT C/O OF NAUSEA,,M MEDICATED WITH ZOFRAN ORDERED.
[2019-11-13 17:45] VITALS: BP 139/66
--- NOTE | 2019-11-13 17:53 | NUR ---
TYLENOL GIVEN FOR ELEVATED TEMP OF 101.3, NOTIFIED DR. ALEJANDRE OF ELEVATED TEMP WELL GIVING PATIENT TYLENOL.
[2019-11-13 20:00] VITALS: BP 116/50
--- NOTE | 2019-11-13 20:10 | NUR ---
PT SITTING UP IN CHAIR. RESP-EASY AND REGULAR. OXYGEN IN USE. NO C/O AT THIS TIME. TOLERATED ROUTINE MED WITH NO PROBLEM. CALL LIGHT IN REACH. SEE SHIFT ASSESSMENT.
--- NOTE | 2019-11-13 22:00 | NUR ---
PT SITTING UP IN CHAIR ASSISTED WITH BATH. TOLERATED ROUTINE RESTORIL PO PER PT REQUEST. SEE EMAR. OXYGEN IN USE. NO C/O AT THIS TIME. ASSISTED TO BED. CALL LIGHT IN REACH. PT AGRESS TO MONITOR TO KEEP EYE ON HIM TONIGHT.
[2019-11-14] VITALS: BP 110/48
--- NOTE | 2019-11-14 00:10 | NUR ---
PT RESTING IN BED. RESP-EASY AND REGULAR. OXYGEN IN USE. NO C/O AT THIS TIME. CALL LIGHT IN REACH.
--- NOTE | 2019-11-14 03:03 | NUR ---
WENT TO SEE PT LEADS OFF ON FIELD GEOLOGIST. PT FELT HOT. TEMP-100.4 ORALLY. MEDICATED WITH TYLENOL PO PER PRN ORDER, SEE EMAR. ASSISTED UP TO USE URINAL. RESTING BACK IN BED. PT WEAK. OXYGEN IN USE. CALL LIGHT IN REACH. WILL CON'T TO MONITOR.
--- NOTE | 2019-11-14 03:04 | NUR ---
TYLENOL GIVEN PER ORDER FOR PAIN. WILL MONITOR
[2019-11-14 04:00] VITALS: BP 100/50
--- NOTE | 2019-11-14 04:20 | NUR ---
PT RESTING IN BED STATES HE FEELS LIKE HE IS HOTTER PER PT. TEMP 99.7 ORALLY MEDICATION HELPING. TOOK 5 BLANKETS OFF THE PT. RESTING IN BED. BP 100/52 AND PULSE OX 93%5LITERS. CALL LIGHT IN REACH. BED ALARM ON.
[2019-11-14 06:12] LABS: BASO % 0.5 % (0.0-1.0); EOS % 0.5 % (1.0-4.0); HEMATOCRIT 38.1 % (42.0-52.0); LYMPH # 1.9 10*3/uL (1.3-4.4); MEAN CELL VOLUME 96.2 fl (80.0-94.0); MEAN CORPUSCULAR HGB 31.1 pg (27.0-31.0); MEAN CORPUSCULAR HGB CONC 32.3 g/dl (33.0-37.0); MONO # 0.7 10*3/uL (0.1-1.0); MONO % 8.5 % (3.0-9.0); NEUT # 5.5 10*3/uL (2.3-7.9); NEUT % 65.9 % (47.0-73.0); PLATELET COUNT AUTOMATED 279 10*3/uL (130-400); RED BLOOD COUNT 3.96 10*6/uL (4.50-5.90); WHITE BLOOD COUNT 8.3 10*3/uL (4.8-10.8)
[2019-11-14 06:36] LABS: ALBUMIN 2.6 gm/dl (3.1-4.5); ALKALINE PHOSPHATASE 34 U/L (45-117); BUN 17 mg/dl (7-24); CHLORIDE 106 mmol/L (98-107); CREATININE 1.17 mg/dL (0.70-1.30); POTASSIUM 3.4 mmol/L (3.5-5.1); SGOT/AST 15 IU/L (3-35); SGPT/ALT 44 U/L (12-78); SODIUM 141 mmol/L (136-145); TOTAL PROTEIN 5.6 gm/dL (6.4-8.2)
--- NOTE | 2019-11-14 07:00 | NUR ---
ARRIVED ON SHIFT, REPORT RECEIVED FROM OFFGOING NURSE, ASSUMED CARE OF PATIENT.
--- NOTE | 2019-11-14 07:15 | NUR ---
INTRODUCED SELF TO PATIENT, BED IN LOW POSITION WITH WHEEL LOCKS ENGAGED, SIDERAILS UP X 2 FOR TURNING AND REPOSITIONING, BED ALARM ON R/T INCREASED WEAKNESS, REMINDED TO USE CALL LIGHT WHICH IS WITHIN REACH, NO NEEDS VOICED AT THIS TIME, WHITE BOARD UPDATED.
[2019-11-14 08:00] VITALS: BP 114/64
--- NOTE | 2019-11-14 08:49 | NUR ---
SENIOR C SOFTWARE ENGINEER EMAILED REFERRAL TO [facility]OTH [facility] AND [facility]. ASHLEY [email or web address]. [facility] IS STILL REVIEWING WELL.
--- NOTE | 2019-11-14 09:00 | NUR ---
social security assessor is working on referals to [facility] and [facility], case management will follow
--- NOTE | 2019-11-14 09:17 | NUR ---
PATIENT C/O OF FEELING NAUSEATED MEDICATED WITH ZOFRAN ORDERED PRN.
--- NOTE | 2019-11-14 09:34 | NUR ---
EQUIPMENT OPERATOR/LABORER EMAILED REFERRAL TO BOTH [facility]. ASHLEY [email or web address]. [facility] IS STILL REVIEWING WELL.
--- NOTE | 2019-11-14 10:16 | NUR ---
LORA HEARD BACK FROM [facility]. PATIENT WOULD NEED TO FEVER FREE FOR 72HOURS WITH NO FEVER SURPRESSANT AND NEGATIVE TESTING RESULT. SHE IS STILL REVIEWING CLINICALS.
--- NOTE | 2019-11-14 10:17 | NUR ---
DENIES ANY FURTHER C/O NAUSEA ZOFRAN EFFECTIVE.
--- NOTE | 2019-11-14 10:45 | NUR ---
PER LENKA PATIENT DOES NOT MEET CRITERIA FOR [facility].
--- NOTE | 2019-11-14 11:03 | NUR ---
Shift chart check completed.
--- NOTE | 2019-11-14 11:51 | NUR ---
[facility] REQUESTED ADDITIONAL CLINICALS. SALVAGE DIVER SCANNED/EMAILED CLINICALS.
[2019-11-14 12:00] VITALS: BP 130/64
--- NOTE | 2019-11-14 12:12 | NUR ---
LORA RECEIVED PHONE CALL FROM PATIENTS SIGNIFICANT OTHER JESS. SHE STATED THAT SHE WOULD PREFER THE PATIENT GO HOME WITH HOME HEALTH RNS/PT/OT AND WITH HER. SHE STATED THAT SHE HAS EVERYTHING THE PATIENT NEEDS. SHE STATED " LONG HE CAN STAND, I CAN HELP HIM". SHE FEELS THAT HIS RECOVERY WOULD SMOOTHER AT HOME. LORA SPOKE WITH THE PATIENT WHO STATED HE WOULD TALK TO JESS HIMSELF. LORA WILL FOLLOW UP WITH THE PATIENT. LORA NOTIFIED AND SPOKE WITH RN HOSPITALIST COORDINATOR [place]. LORA NOTIFIED SCHOOL BUS AIDE.
--- NOTE | 2019-11-14 12:28 | NUR ---
[facility]
--- NOTE | 2019-11-14 13:49 | NUR ---
WEDGER AND GLUER REACHED OUT TO [facility] TO SEE ABOUT [facility] HOME VS SNF PATIENT STATED HE WOULD GO HOME. WEDGER AND GLUER SPOKE WITH SIGNIFICANT OTHER JESS ABOUT TRANSPORTATION. SHE ASKED IF THIS WEDGER AND GLUER COULD CONTACT [facility] THEY HAVE A MEMBERSHIP. WEDGER AND GLUER SPOKE WITH SUPERVISIOR [facility], PATIENT WOULD NOT QUALIFY FOR TRANSPORT AND WOULD HAVE A PAYMENT OF $231.98. WEDGER AND GLUER INFORMED JESS OF THIS, SHE STATED SHE WOULD TRANSPORT THE PATIENT HOME AND HAVE SOMEONE THERE TO ASSIST WITH GETTING THE PATIENT INTO THE HOME. WEDGER AND GLUER NOTIFIED SCRAP METAL BURNER GREGG, RN HOSPITALIST COORDINATOR [place], AND WORK INTERIOR WIRER TEJAL.
--- NOTE | 2019-11-14 15:06 | NUR ---
LABOR RELATIONS MANAGER SPOKE WITH [facility], IF THEY HAVE A CREW AVAILABLE THEY WOULD BE ABLE TO DO A LIFT ASSIST. LABOR RELATIONS MANAGER CALLED AND INFORMED JESS OF THIS. SHE STATED SHE DOES HAVE A NEIGHBOR TO HELP GET THE PATIENT INTO THE HOUSE. JESS HAD QUESTIONS FOR THE PATIENTS RN. LABOR RELATIONS MANAGER TRANSFERRED THE CALL TO THE WORK SENIOR SALES EXECUTIVE.
[2019-11-14 16:00] VITALS: BP 132/66
--- NOTE | 2019-11-14 16:15 | NUR ---
Discharge instructions reviewed with patient. Patient receptive and verbalizes understanding. Follow-up care arranged with home health, Written instructions given, removed both IV's and telemetry, all personal items accounted for and given to patient upon discharge, taken out by w/c on O2 with covid mask on. DIAMOND RESENDEZ
--- NOTE | 2019-11-15 11:25 | NUR ---
LORA RECEIVED CALL FROM PATIENTS SIGNIFICANT OTHER JESS. SHE STATED THAT SHE HAS NOT HEARD FROM [facility] ABOUT SEEING THE PATIENT TODAY. LORA CALLED [facility] AND SPOKE WITH MICHAEL. THE PATIENT IS SET TO BEEN SEEN LAST TODAY. LORA CALLED JESS BACK AND INFORMED HER OF THIS. LORA ALSO LET HER KNOW THAT AN RN WOULD BE CALLING THEM SOON PER MICHAEL.
== END 2019-11-14 15:49 | disposition home health service (06) | DRG 871 ==
LOC: ED 14:29 → 4E 16:48 → EDHOLD 16:48 → 4E 18:13
PROVIDERS: Emergency Medicine; Internal Medicine; Internal Medicine Critical Care Medicine; Specialist; ADMIT Family Medicine
DX: A41.9 Sepsis, unspecified organism (principal); J96.21 Acute and chronic respiratory failure with hypoxia; U07.1 COVID-19; J18.9 Pneumonia, unspecified organism; J44.0 Chronic obstructive pulmonary disease with (acute) lower respiratory infection; E87.1 Hypo-osmolality and hyponatremia; R17 Unspecified jaundice; J44.1 Chronic obstructive pulmonary disease with (acute) exacerbation; N17.9 Acute kidney failure, unspecified; J45.901 Unspecified asthma with (acute) exacerbation; D68.59 Other primary thrombophilia; R65.20 Severe sepsis without septic shock; G47.34 Idiopathic sleep related nonobstructive alveolar hypoventilation; K21.9 Gastro-esophageal reflux disease without esophagitis; I73.9 Peripheral vascular disease, unspecified; K52.9 Noninfective gastroenteritis and colitis, unspecified; G25.81 Restless legs syndrome; D64.9 Anemia, unspecified; E83.39 Other disorders of phosphorus metabolism; N40.0 Benign prostatic hyperplasia without lower urinary tract symptoms; R74.0 Nonspecific elevation of levels of transaminase and lactic acid dehydrogenase [LDH]; E87.5 Hyperkalemia; Z20.828 Contact with and (suspected) exposure to other viral communicable diseases; Z88.1 Allergy status to other antibiotic agents; Z90.49 Acquired absence of other specified parts of digestive tract; Z87.891 Personal history of nicotine dependence; Z80.3 Family history of malignant neoplasm of breast; Z79.82 Long term (current) use of aspirin; Z79.899 Other long term (current) drug therapy; Z96.659 Presence of unspecified artificial knee joint

== ENCOUNTER 2020-08-07 10:11 | Emergency (ER) | payer MEDICARE, OTHER ==
[~2020-08-07] VITALS: Wt 74.8 kg
[~2020-08-07 10:11] MED LIST changes: +REQUIP0.25 M1 PO; -REQUIP0.5 MG PO
[2020-08-07 11:25] LABS: BILIRUBIN Negative (Negative); BLOOD Negative (Negative); CLARITY Clear (Clear); COLOR Yellow (Yellow); GLUCOSE Negative (Negative); KETONE Negative (Negative); LEUKO ESTERASE Negative (Negative); NITRITE Negative (Negative); SPECIFIC GRAVITY 1.015 (1.001-1.030)
[2020-08-07 11:52] LABS: MUCOUS 1+; WBC 0-2 wbc/hpf (0-5)
[2020-08-07 12:58] LABS: BASO % 0.3 % (0.0-1.0); EOS # 0.3 10*3/uL (0.0-0.4); EOS % 4.7 % (1.0-4.0); HEMATOCRIT 43.1 % (42.0-52.0); LYMPH # 1.3 10*3/uL (1.3-4.4); LYMPH % 21.1 % (27.0-41.0); MEAN CELL VOLUME 93.1 fl (80.0-94.0); MEAN CORPUSCULAR HGB 30.9 pg (27.0-31.0); MEAN CORPUSCULAR HGB CONC 33.2 g/dl (33.0-37.0); MEAN PLATELET VOLUME 9.5 fl (9.6-12.3); MONO # 0.4 10*3/uL (0.1-1.0); MONO % 6.5 % (3.0-9.0); NEUT # 4.1 10*3/uL (2.3-7.9); NEUT % 67.2 % (47.0-73.0); PLATELET COUNT AUTOMATED 236 10*3/uL (130-400); RED BLOOD COUNT 4.63 10*6/uL (4.50-5.90); RED CELL DISTRI WIDTH 12.7 % (0-14.5); WHITE BLOOD COUNT 6.1 10*3/uL (4.8-10.8)
[2020-08-07 13:14] LABS: ALBUMIN 3.3 gm/dl (3.1-4.5); ALKALINE PHOSPHATASE 61 U/L (45-117); BUN 11 mg/dl (7-24); CHLORIDE 109 mmol/L (98-107); CREATININE 0.95 mg/dL (0.70-1.30); LIPASE 73 U/L (73-393); POTASSIUM 3.8 mmol/L (3.5-5.1); SGOT/AST 11 IU/L (3-35); SGPT/ALT 23 U/L (12-78); SODIUM 143 mmol/L (136-145)
[2020-08-07 15:05] VITALS: BP 156/76
[2020-08-07] MEDS ORDERED: ROBAXIN-750750 MG PO (16:05)
== END 2020-08-07 16:20 | disposition home or self-care (01) ==
LOC: ED 10:11
PROVIDERS: Family Medicine; Physician Assistant
DX: S39.011A Strain of muscle, fascia and tendon of abdomen, initial encounter (principal); K21.9 Gastro-esophageal reflux disease without esophagitis; J44.9 Chronic obstructive pulmonary disease, unspecified; Z88.8 Allergy status to other drugs, medicaments and biological substances; Z79.899 Other long term (current) drug therapy; Z98.890 Other specified postprocedural states; Z90.49 Acquired absence of other specified parts of digestive tract; X50.0XXA Overexertion from strenuous movement or load, initial encounter; Y93.89 Activity, other specified; Y92.89 Other specified places as the place of occurrence of the external cause; Y99.8 Other external cause status

== ENCOUNTER 2020-08-13 09:49 | Observation (INO) | payer MEDICARE, OTHER ==
[~2020-08-13] VITALS: Ht 170.1 cm; Wt 75.8 kg
[~2020-08-13 09:49] MED LIST changes: +ROBAXIN-750750 MG PO
[2020-08-13 09:55] VITALS: BP 132/70
[2020-08-13 10:14] VITALS: BP 135/75
[2020-08-13 10:45] LABS: BASO # 0.1 10*3/uL (0.0-0.1); BASO % 0.8 % (0.0-1.0); EOS # 0.4 10*3/uL (0.0-0.4); HEMATOCRIT 44.4 % (42.0-52.0); LYMPH # 1.3 10*3/uL (1.3-4.4); LYMPH % 20.7 % (27.0-41.0); MEAN CELL VOLUME 93.5 fl (80.0-94.0); MEAN CORPUSCULAR HGB 30.7 pg (27.0-31.0); MEAN CORPUSCULAR HGB CONC 32.9 g/dl (33.0-37.0); MEAN PLATELET VOLUME 9.4 fl (9.6-12.3); MONO # 0.4 10*3/uL (0.1-1.0); MONO % 6.1 % (3.0-9.0); NEUT # 4.1 10*3/uL (2.3-7.9); NEUT % 65.1 % (47.0-73.0); PLATELET COUNT AUTOMATED 263 10*3/uL (130-400); RED BLOOD COUNT 4.75 10*6/uL (4.50-5.90); RED CELL DISTRI WIDTH 12.9 % (0-14.5); WHITE BLOOD COUNT 6.3 10*3/uL (4.8-10.8)
[2020-08-13 10:57] LABS: ACT PARTIAL THROMBO TIME 27.8 SECONDS (20.0-32.1)
[2020-08-13 11:01] LABS: ALBUMIN 3.4 gm/dl (3.1-4.5); ALKALINE PHOSPHATASE 64 U/L (45-117); BUN 15 mg/dl (7-24); CHLORIDE 109 mmol/L (98-107); CREATININE 1.16 mg/dL (0.70-1.30); LIPASE 111 U/L (73-393); POTASSIUM 4.4 mmol/L (3.5-5.1); SGOT/AST 18 IU/L (3-35); SGPT/ALT 25 U/L (12-78); SODIUM 143 mmol/L (136-145); TOTAL PROTEIN 6.9 gm/dL (6.4-8.2)
[2020-08-13 11:02] LABS: TROPONIN I < 0.015 ng/ml (<0.045)
[2020-08-13 11:18] LABS: BILIRUBIN Negative (Negative); BLOOD Negative (Negative); CLARITY Clear (Clear); COLOR Yellow (Yellow); GLUCOSE Negative (Negative); KETONE Negative (Negative); LEUKO ESTERASE Negative (Negative); NITRITE Negative (Negative)
[2020-08-13 11:33] LABS: CALCIUM OXALATE CRYSTALS Trace; MUCOUS TRACE
[2020-08-13 20:56] VITALS: BP 126/84
[2020-08-13 21:10] VITALS: BP 154/72
[2020-08-13] MEDS ORDERED: ZZZQUIL25 M1 PO (21:39)
[2020-08-14] VITALS: BP 108/55
[2020-08-14 06:00] VITALS: BP 133/70
[2020-08-14 06:26] LABS: BASO # 0.1 10*3/uL (0.0-0.1); BASO % 0.9 % (0.0-1.0); EOS # 0.5 10*3/uL (0.0-0.4); EOS % 9.1 % (1.0-4.0); HEMATOCRIT 42.4 % (42.0-52.0); LYMPH # 2.1 10*3/uL (1.3-4.4); LYMPH % 38.1 % (27.0-41.0); MEAN CELL VOLUME 93.2 fl (80.0-94.0); MEAN CORPUSCULAR HGB 30.1 pg (27.0-31.0); MEAN CORPUSCULAR HGB CONC 32.3 g/dl (33.0-37.0); MEAN PLATELET VOLUME 9.5 fl (9.6-12.3); MONO # 0.5 10*3/uL (0.1-1.0); MONO % 8.6 % (3.0-9.0); NEUT # 2.3 10*3/uL (2.3-7.9); NEUT % 43.1 % (47.0-73.0); PLATELET COUNT AUTOMATED 247 10*3/uL (130-400); RED BLOOD COUNT 4.55 10*6/uL (4.50-5.90); RED CELL DISTRI WIDTH 12.8 % (0-14.5); WHITE BLOOD COUNT 5.4 10*3/uL (4.8-10.8)
[2020-08-14 06:55] LABS: ALBUMIN 3.2 gm/dl (3.1-4.5); BUN 14 mg/dl (7-24); CHLORIDE 109 mmol/L (98-107); CHOLESTEROL 149 mg/dL (<200); CREATININE 1.09 mg/dL (0.70-1.30); POTASSIUM 3.9 mmol/L (3.5-5.1); SGOT/AST 20 IU/L (3-35); SGPT/ALT 26 U/L (12-78); SODIUM 142 mmol/L (136-145); TOTAL PROTEIN 6.7 gm/dL (6.4-8.2); TRIGLYCERIDES 135 mg/dl (<150); VLDL CHOLESTEROL 27 mg/dL (6-40)
[2020-08-14 07:01] LABS: ALKALINE PHOSPHATASE 61 U/L (45-117); FREE T4 0.96 ng/dl (0.76-1.46); HDL CHOLESTEROL 48 mg/dl (40-60); LDL CHOLESTEROL 74 mg/dL (9-159)
[2020-08-14 07:28] LABS: VITAMIN D, 25-HYDROXY 65.1 ng/mL (30-100)
[2020-08-14 08:00] VITALS: BP 124/48
[2020-08-14 12:00] VITALS: BP 125/52
[2020-08-14 16:00] VITALS: BP 125/58
[2020-08-14 20:00] VITALS: BP 150/75
[2020-08-15] VITALS: BP 134/69
[2020-08-15 08:00] VITALS: BP 139/48
[2020-08-15] MEDS ORDERED: COLACE100 MG PO (11:23)
[2020-08-15 12:00] VITALS: BP 126/59
== END 2020-08-15 16:15 | disposition home health service (06) ==
LOC: ED 09:49 → EDHOLD 13:13 → 5E 18:56
PROVIDERS: Emergency Medicine; Internal Medicine; ADMIT Internal Medicine; ATTEND Internal Medicine
DX: R10.30 Lower abdominal pain, unspecified (principal); E87.8 Other disorders of electrolyte and fluid balance, not elsewhere classified; E83.41 Hypermagnesemia; E73.9 Lactose intolerance, unspecified; R79.82 Elevated C-reactive protein (CRP); E44.1 Mild protein-calorie malnutrition; J44.9 Chronic obstructive pulmonary disease, unspecified; K21.9 Gastro-esophageal reflux disease without esophagitis; G47.34 Idiopathic sleep related nonobstructive alveolar hypoventilation; N40.0 Benign prostatic hyperplasia without lower urinary tract symptoms; I73.9 Peripheral vascular disease, unspecified; G25.81 Restless legs syndrome; K52.9 Noninfective gastroenteritis and colitis, unspecified; D64.9 Anemia, unspecified; K59.00 Constipation, unspecified; Z99.81 Dependence on supplemental oxygen; Z90.49 Acquired absence of other specified parts of digestive tract; Z98.890 Other specified postprocedural states; Z87.891 Personal history of nicotine dependence

== ENCOUNTER 2021-02-20 10:15 | Emergency (ER) | payer MEDICARE, OTHER ==
[~2021-02-20 10:15] MED LIST changes: +COLACE100 MG PO; +ZZZQUIL25 M1 PO
== END 2021-02-20 11:41 | disposition left against medical advice (07) ==
LOC: ED 10:15
DX: R11.0 Nausea (principal); R19.7 Diarrhea, unspecified; Z53.21 Procedure and treatment not carried out due to patient leaving prior to being seen by health care provider

== ENCOUNTER 2021-11-06 18:42 | Emergency (ER) | payer MEDICARE, OTHER ==
[~2021-11-06] VITALS: Ht 170.1 cm; Wt 71.2 kg
[~2021-11-06 18:42] MED LIST changes: +ASPIRIN81 M1 PO; +CLOPIDOGREL75 MG PO; +CULTURELLE1 EACH PO; +FLOVENT HFA10.6 GM INH; +GUMMI BEAR MUL1 EACH PO; +HYDROCODONE-AC1 EAC1 PO; +LEVOFLOXACIN750 M2 PO; +MESALAMINE1.2 GM PO; +PROAIR HFA8.5 GM INH; +ROPINIROLE HYD0.5 MG PO; +SPIRIVA -- 3018 MCG INH; +SPIRIVA18 MCG PO; +SYMB160 INH; +VENT7GM INH; +VITAMIN B COMP1 EAC1 PO; +VITAMIN C1000 M5 PO; +VITAMIN D325 MCG PO; +VITAMIN D350 MC2 GT
[2021-11-06 19:10] VITALS: BP 136/62
[2021-11-06] MEDS ORDERED: TRAMADOL HCL50 MG PO (22:32)
[2021-11-06] MEDS ORDERED: Bactroban Oint22 GM T (22:33)
== END 2021-11-06 22:48 | disposition home or self-care (01) ==
LOC: ED 18:42
DX: S01.01XA Laceration without foreign body of scalp, initial encounter (principal); S80.811A Abrasion, right lower leg, initial encounter; Z88.1 Allergy status to other antibiotic agents; Z79.899 Other long term (current) drug therapy; Z79.82 Long term (current) use of aspirin; Z90.49 Acquired absence of other specified parts of digestive tract; Z98.890 Other specified postprocedural states; Z90.89 Acquired absence of other organs; Z87.891 Personal history of nicotine dependence; W18.39XA Other fall on same level, initial encounter; Y93.89 Activity, other specified; Y92.89 Other specified places as the place of occurrence of the external cause; Y99.8 Other external cause status

== ENCOUNTER 2021-11-07 14:18 | Emergency (ER) | payer MEDICARE, OTHER ==
[~2021-11-07 14:18] MED LIST changes: +Bactroban Oint22 GM T; +TRAMADOL HCL50 MG PO
[2021-11-07 14:32] VITALS: BP 142/79
== END 2021-11-07 16:40 | disposition home or self-care (01) ==
LOC: ED 14:18
DX: Z48.01 Encounter for change or removal of surgical wound dressing (principal)